=== PATIENT | female | born 1930 | race Caucasian/White ===

== ENCOUNTER 2017-10-14 22:02 | Inpatient (IN) | payer MEDICARE, BC ==
[~2017-10-14] VITALS: Ht 152.4 cm; Wt 72.6 kg
[2017-10-14 22:33] LABS: BASOPHILS 0.2 % (0-2); EOSINOPHILS 0.5 % (0-7); HEMATOCRIT 39.4 % (36.0-48.0); HEMOGLOBIN 12.5 g/dL (12-16); IMMATURE GRANULOCYTES 0.4 % (0-5); LYMPHOCYTES 10.5 % (15-50); MCHC 31.7 g/dL (31.0-37.0); MCV 97.8 fL (80.0-100.0); MEAN PLATELET VOLUME 10.9 fL (7.4-10.4); MONOCYTES 13.6 % (2-11); NEUTROPHILS 74.8 % (40-80); PLATELET COUNT 176 10x3/uL (130-400); RBC 4.03 10x6/uL (4.00-5.40); WBC 5.5 10x3/uL (4.8-10.8)
[2017-10-14 22:45] LABS: HEMOGLOBIN A1C 6.3 % (4.8-6.0)
[2017-10-14 22:46] LABS: BILIRUBIN - TOTAL 0.1 mg/dL (0.2-1.3); CALCIUM 8.7 mg/dL (8.5-10.1); CARBON DIOXIDE 32.2 mmol/L (21.0-32.0); CREATININE - SERUM 1.3 mg/dL (0.6-1.3); POTASSIUM - SERUM 3.2 mmol/L (3.5-5.1); PROTEIN - SERUM 6.2 g/dL (6.4-8.2)
[2017-10-14 22:48] LABS: APPEARANCE HAZY (CLEAR); BILIRUBIN NEGATIVE (NEGATIVE); COLOR YELLOW (YELLOW); GLUCOSE NEGATIVE (NEGATIVE); KETONE NEGATIVE (NEGATIVE); NITRITE POSITIVE (NEGATIVE); PROTEIN TRACE mg/dL (NEGATIVE); UROBILINOGEN NORMAL (NORMAL)
[2017-10-14 22:49] LABS: WHITE CELLS - URINE OCC /hpf (0-5)
[2017-10-14 22:50] LABS: BACTERIA MANY /hpf (NONE SEEN); EPITHELIAL CELLS 0-5 /hpf (0-5)
[2017-10-15] MEDS ORDERED: ROBAXIN500 MG PO (02:12)
[2017-10-15] MEDS ORDERED: GLIMEPIRIDE4 MG PO (02:13)
[2017-10-15] MEDS ORDERED: CELEXA10 MG PO (02:13)
[2017-10-15] MEDS ORDERED: OXYBUTYNIN CHLOR5 MG PO (02:15)
[2017-10-15] MEDS ORDERED: HYZAAR 50-12.51 TAB PO (02:16)
[2017-10-15] MEDS ORDERED: TENORMIN25 MG PO (02:16)
[2017-10-15] MEDS ORDERED: ACETAMINOPHEN325 MG PO (02:17)
[2017-10-15 02:19] VITALS: BP 130/62; BMI 31.3
--- NOTE | 2017-10-15 07:10 | NUR ---
REPORT RCEIVED FROM POLITICAL WORKER NURSE. CALL LIGHT IN REACH.
[2017-10-15 08:29] VITALS: BP 117/49
--- NOTE | 2017-10-15 09:30 | NUR ---
ASSESSMENT COMPLETED. SCDs APPLIED TO BLE. BED ALARM TURNED ON. CALL LIGHT IN REACH. WILL CONTINUE WITH PLAN OF CARE.
--- NOTE | 2017-10-15 10:56 | NUR ---
PT IN NO SIGNS OF ACUTE DISTRESS, BREATHING TREATMENT AT THIS TIME. NO NEEDS VOICED. BED IN LOWEST POSITION, SIDE RAILS UP X 2, CALL LIGHT WITHIN REACH.
--- NOTE | 2017-10-15 11:15 | NUR ---
ASSISTED TO BR AND BACK TO BED PER PARKS AND RECREATION WORKER.
[2017-10-15 12:32] VITALS: BP 108/53
--- NOTE | 2017-10-15 13:41 | NUR ---
FSBS 48. 1/2AMP OF D50 IVP. MORPHINE 2 MG SIVP. STATES IT IS HARD TO BREATHE AND NEEDS BREATHING TX. WILL CALL RESPIRATORY THERAPY.
[2017-10-15 15:37] VITALS: BP 111/45
--- NOTE | 2017-10-15 15:44 | NUR ---
PT AOX4 RESP EVEN AND NONLABORED PT DENIES NEEDS AT THIS TIME PT HERE FOR PNEUMONIA FOR THIS VISIT
[2017-10-15 16:28] LABS: BASOPHILS 0.2 % (0-2); EOSINOPHILS 1.3 % (0-7); HEMATOCRIT 37.6 % (36.0-48.0); HEMOGLOBIN 11.8 g/dL (12-16); IMMATURE GRANULOCYTES 0.2 % (0-5); LYMPHOCYTES 13.3 % (15-50); MCH 30.6 pg (26.0-34.0); MCHC 31.4 g/dL (31.0-37.0); MCV 97.7 fL (80.0-100.0); MEAN PLATELET VOLUME 10.7 fL (7.4-10.4); MONOCYTES 13.1 % (2-11); NEUTROPHILS 71.9 % (40-80); PLATELET COUNT 171 10x3/uL (130-400); RBC 3.85 10x6/uL (4.00-5.40); RDW 13.1 % (11.5-14.5); WBC 4.7 10x3/uL (4.8-10.8)
[2017-10-15 16:45] LABS: ANION GAP 10.7 mmol/L (8-16); CALCIUM 8.3 mg/dL (8.5-10.1); CARBON DIOXIDE 30.9 mmol/L (21.0-32.0); CREATININE - SERUM 1.2 mg/dL (0.6-1.3); POTASSIUM - SERUM 3.6 mmol/L (3.5-5.1)
--- NOTE | 2017-10-15 17:45 | NUR ---
DR. RUSHING IN ROOM TO SEE PATIENT. SOLUMEDROL AND MORPHINE SIVP. FSBS 69. SAT PATIENT ON SIDE OF BED TO EAT. CALL LIGHT IN REACH.
--- NOTE | 2017-10-15 18:16 | NUR ---
LASIX 20 MG SIVP. NO CHANGES IN INITIAL ASSESSMENT. SCDs TO BLE. BED ALARM ON. CALL LIGHT IN REACH. WILL CONTINUE WITH PLAN OF CARE.
[2017-10-15 20:00] VITALS: BP 109/54
--- NOTE | 2017-10-15 20:00 | NUR ---
PT RESTING QUIETLY AT THIS TIME. DENIES ANY NEEDS. STATES SHE IS AGGRAVATED AT [facility] IS TO WHY HER HEART RATE KEEPS GOING UP. CALL LIGHT IN REACH, SRX2, BED IN LOWEST POSITION. WILL CONTINUE WITH PLAN OF CARE.
--- NOTE | 2017-10-15 21:42 | NUR ---
BS 171, ADMIONISTERED 2 UNITS HUMULIN R PER SS.
[2017-10-16] VITALS (7 sets, daily range): BP systolic 82–109; BP diastolic 32–52; Ht 152.4 cm; Wt 72.6 kg
--- NOTE | 2017-10-16 00:39 | NUR ---
PT RUNNING CONTINUALLY 160-190'S ON TELE FOR A PERIOD OF [address] TOLENTINO IN ER. ORDERED AN EKG BEFORE ANY OTHER TREATMENT WILL BE ORDERED.
--- NOTE | 2017-10-16 00:53 | NUR ---
IV RESITED TO RIGHT WRIST 20G FROM SUSANA MONTANO. IV LEVOQUIN RESTARTED AT THIS TIME. EKG COMPLETED PER RT. AWAITING FURTHER ORDERS FOR TACHYCARDIA.
--- NOTE | 2017-10-16 01:28 | NUR ---
PT TO BE TRANSFERED TO 2117, REPORT GIVEN TO ANDREA CLIFTON.
--- NOTE | 2017-10-16 02:15 | NUR ---
PT TRANSFERRED FROM MED SURG R/T GOING INTO UNCONTROLLED A-FIB WITH A HR FROM 160'S TO 200 AT TIMES. PT IS AWAKE, AND ALERT AT THIS TIME, ORIENTED X 4. PT DEMONSTRATES MILD TACHYPNEA AND NAUSEA, DENIES CHEST PAIN. DILTIAZEM GTT ORDERED PRIOR TO TRANSFER, HOWEVER, JUST BEFORE I WAS TO HANG THE DILTIAZEM, PT CONVERTED BACK INTO SINUS RHYTHM WITH A HR OF 166. I HAVE HELD THE DILTIAZEM GTT AT THIS TIME, SUPERVISOR BROODER [employer]ARM, KATIE SALAS NOTIFIED. THE DILTIAZEM IS SPIKED AND HANGING ON THE IV POLE SHOULD PT GO BACK INTO UNCONTROLLED A-FIB. PT HAS DRY MOUTH, NAUSEA TX WITH PRN ZOFRAN, OTHERWISE NO NEEDS. PTS LEFT ARM WHICH IS SWOLLEN WITH REDNESS TO THE AC AREA HAS BEEN PLACED ON A PILLOW FOR COMFORT AND ELEVATION. WILL CONTINUE TO MONITOR PT CLOSELY. BED LOW, CALL LIGHT IN REACH, SIDE RAILS X 2, HOB 30 DEGREES, SCD'S ON AND BED ALARM ON. I HAVE ASKED PT TO REMAIN ON COMPLETE BEDREST AT THIS TIME.
[2017-10-16 05:30] LABS: BASOPHILS 0 % (0-2); EOSINOPHILS 0.3 % (0-7); HEMATOCRIT 36.7 % (36.0-48.0); HEMOGLOBIN 11.6 g/dL (12-16); IMMATURE GRANULOCYTES 0.6 % (0-5); LYMPHOCYTES 8.7 % (15-50); MCH 30.9 pg (26.0-34.0); MCHC 31.6 g/dL (31.0-37.0); MCV 97.6 fL (80.0-100.0); MEAN PLATELET VOLUME 10.7 fL (7.4-10.4); MONOCYTES 3.9 % (2-11); NEUTROPHILS 86.5 % (40-80); PLATELET COUNT 180 10x3/uL (130-400); RBC 3.76 10x6/uL (4.00-5.40)
[2017-10-16 05:31] LABS: WBC 3.3 10x3/uL (4.8-10.8)
[2017-10-16 05:50] LABS: ANION GAP 13.2 mmol/L (8-16); CALCIUM 8.6 mg/dL (8.5-10.1); CARBON DIOXIDE 28.9 mmol/L (21.0-32.0); CREATININE - SERUM 1.2 mg/dL (0.6-1.3); POTASSIUM - SERUM 4.1 mmol/L (3.5-5.1)
--- NOTE | 2017-10-16 06:34 | NUR ---
PT PULLED HER TELEMETRY OFF AND STATED SHE SAW SOMEONE IN HER BATHROOM. PT IS DEMONSTRATING INCREASED CONFUSION AT THIS TIME. THERE WAS NO ONE IN HER BATHROOM AT THIS TIME. PT HAS BEEN REORIENTED, TELEMETRY REPLACED. CONTINUE TO MONITOR CLOSELY.
--- NOTE | 2017-10-16 07:51 | NUR ---
AM ROUNDS COMPLETED. INTRODUCED MYSELF TO PT PRIMARY RN FOR TODAYS SHIFT. SHIFT ASSESSMENT COMPLETED. PT RESTING QUIETLY IN BED AND DENIES ANY CURRENT NEEDS. CL IN REACH, BED IN LOWEST, SIDE RAILS X2 AND WILL CPOC.
--- NOTE | 2017-10-16 09:00 | NUR ---
AT BEDSIDE ACCESSING PT. PT WILL BE GIVEN NEW ORAL MEDICATIONS AND NO DRIP NEEDED SHE HAS ALREADY CONVERTED WITHOUT IT. PT CURRENTLY RUNNING ST @106. WILL CPOC.
--- NOTE | 2017-10-16 12:00 | NUR ---
FSBS 297. PROVIDED PT WITH 6 UNITS OF INSULIN PER SS. PT SITTING UP IN BED RESTING QUIETLY WITH DAUGHTER AT BEDSIDE. DENIES ANY CURRENT PAIN OR NEEDS. CL IN REACH. WILL CPOC.
--- NOTE | 2017-10-16 14:58 | NUR ---
INTERACTIVE VIDEO TECHNICIAN HERE TO GET PT FOR A 2VIEW OF CHEST. PT STATES SHE HASNT AMBULATED IN A COUPLE DAYS, READ THERAPY NOTES AND PT SHOULD BE ABLE TO BEAR WEIGHT FOR XRAY. WILL TRY AND GET IT AND IF NOT CALL PHYSICIAN TO CHANGE XRAY.
--- NOTE | 2017-10-16 16:30 | NUR ---
PT LEAVING FOR HER CHEST XRAY.
--- NOTE | 2017-10-16 19:00 | NUR ---
RECEIVED REPORT AND ASSUMED PT CARE FROM DAY SHIFT NURSE @ THIS TIME.
--- NOTE | 2017-10-16 21:56 | NUR ---
PT RESTING SOUNDLY WITHOUT C/O OR DISTRESS NOTED. VCALL LIGHT WITHIN REACH. WILL CONT TO MONITOR.
[2017-10-17] VITALS (8 sets, daily range): BP systolic 86–107; BP diastolic 29–48
--- NOTE | 2017-10-17 | NUR ---
PT RESTING WELL, NO CHANGES NOTED. ASSESSMENTS UNCHANGED. CALL LIGHT WITHIN REACH. WILL MONITOR.
[2017-10-17 05:24] LABS: BASOPHILS 0 % (0-2); EOSINOPHILS 0 % (0-7); IMMATURE GRANULOCYTES 0.2 % (0-5); LYMPHOCYTES 12.2 % (15-50); MCH 31.3 pg (26.0-34.0); MCHC 32.4 g/dL (31.0-37.0); MCV 96.4 fL (80.0-100.0); MEAN PLATELET VOLUME 10.2 fL (7.4-10.4); MONOCYTES 6.3 % (2-11); NEUTROPHILS 81.3 % (40-80); PLATELET COUNT 200 10x3/uL (130-400); RBC 3.84 10x6/uL (4.00-5.40); RDW 12.9 % (11.5-14.5)
[2017-10-17 05:31] LABS: WBC 5.3 10x3/uL (4.8-10.8)
[2017-10-17 05:36] LABS: ANION GAP 9.1 mmol/L (8-16); CALCIUM 8.5 mg/dL (8.5-10.1); CREATININE - SERUM 1.4 mg/dL (0.6-1.3); POTASSIUM - SERUM 4.1 mmol/L (3.5-5.1)
--- NOTE | 2017-10-17 07:32 | NUR ---
AM ROUNDS COMPLETED. INTRODUCED MYSELF TO PT PRIMARY RN FOR TODAYS SHIFT. PT REMEMBERS ME FROM YESTERDAY. PT STATES THEY SLEPT ALRIGHT AND DENIES ANY CURRENT PAIN OR NEEDS. WILL CHECK CHART AND CPOC.
--- NOTE | 2017-10-17 09:00 | NUR ---
PT COMPLETELY SATURATED WITH URINE. BED BATH AND COMPLETE LINEN CHANGE PROVIDED. PT STATES SHE KEEPS PEEING IN HER BED BECAUSE SHE FORGETS. R.WRIST PIV IS INFILTRATED AND ARM IS SWOLLEN AND RED/TENDER. D/C'D WITH CATHETER TIP FULLY INTACT, WILL RESITE A LITTLE LATER AFTER SHE EATS BREAKFAST. PT MORE CONFUSED THIS MORNING HOWEVER SHE REORIENTS WELL JUST NEEDS FREQUENT CUING. PT SITTING UP IN BED ABOUT TO EAT BREAKFAST AND DENIES ANY FURTHER NEEDS AT THIS TIME. CL IN REACH, BED IN LOWEST, SIDE RAILS X2. WILL CPOC.
--- NOTE | 2017-10-17 12:15 | NUR ---
FSBS 273 PT REC'D 6 UNITS PER SS INSULIN. PT INCONTINENT OF URINE AGAIN AND REQUIRED A FULL LINEN CHANGE. ENCOURAGED PT TO CALL IF SHE WAS WET OR NEEDING TO VOID AND SHE STATES SHE WILL BUT OFTEN FORGETS. ASSISTED PT UP IN BED TO EAT LUNCH. PT VOICED THANKS. NO FURTHER NEEDS AT THIS TIME. WILL CPOC.
--- NOTE | 2017-10-17 13:27 | NUR ---
20 GUAGE PIV INSERTED TO R.AC X1 STICK.
--- NOTE | 2017-10-17 14:35 | NUR ---
WEANED OXYGEN DOWN TO 1L PTS PULSE OX 99% WILL CTM FOR NEED OF OXYGEN, PT STATES SHE NORMALLY DOESNT NEED OXYGEN.
--- NOTE | 2017-10-17 15:35 | NUR ---
WATER FABRICATOR OPERATOR NOTIFIED ME OF LOW BP READING IN THE 80S. MANUALLY RECHECKED AND BP LOW AT 87/48. PT SITTING UP IN BED AND IS ASYMPTOMATIC DENIES ANY DIZZINESS OR INDIFFERENT FEELINGS. WILL NOTIFY PRIMARY AND CTM.
--- NOTE | 2017-10-17 16:09 | NUR ---
SPEECH PATHO AT BEDSIDE ACCESSING SWALLOWING. NO CURRENT NEEDS. WILL CPOC.
--- NOTE | 2017-10-17 17:39 | NUR ---
RECHECK OF LOW BP NOW 97/37 PAGED PRIMARY HOWEVER PT SITTING UP IN BED AND ASYMPTOMATIC. WEANED OXYGEN DOWN TO RA AND PT REMAINS 93% WILL CTM. ACCURATE OUTPUT NOT AVAILABLE R/T PT BEING INCONTINENT SEVERAL TIMES THROUGHOUT THE DAY.
--- NOTE | 2017-10-17 21:39 | NUR ---
PT'S GLUCOSE > 400. 12 UNITS REGULAR GIVEN. WILL RECHECK GLUCOSE AT MIDNIGHT. WILL CONT TO MONITOR.
--- NOTE | 2017-10-17 23:08 | NUR ---
RIGHT AC IV NOT PATENT AND SWELLING NOTED WHEN FLUSHING SITE. PT C/O PAIN TO SITE. IV REMOVED, CATH INTACT ON REMOVAL. 22 GAUGE ANGIOCATH PLACED TO RIGHT HAND X1 STICK AND PT TOLERATED WELL. DRSG PER POLICY. WILL CONT TO MONITOR.
[2017-10-18] VITALS: BP 85/31
[2017-10-18 04:00] VITALS: BP 97/43
[2017-10-18 05:49] LABS: BASOPHILS 0.1 % (0-2); EOSINOPHILS 0 % (0-7); HEMATOCRIT 37.6 % (36.0-48.0); HEMOGLOBIN 12.3 g/dL (12-16); IMMATURE GRANULOCYTES 0.4 % (0-5); LYMPHOCYTES 9.3 % (15-50); MCH 30.8 pg (26.0-34.0); MCHC 32.7 g/dL (31.0-37.0); MEAN PLATELET VOLUME 10.8 fL (7.4-10.4); NEUTROPHILS 82.2 % (40-80); RDW 12.5 % (11.5-14.5)
[2017-10-18 05:52] LABS: WBC 11.4 10x3/uL (4.8-10.8)
[2017-10-18 05:53] LABS: PLATELET COUNT 259 10x3/uL (130-400)
[2017-10-18 06:20] LABS: ANION GAP 9.6 mmol/L (8-16); CALCIUM 8.9 mg/dL (8.5-10.1); CARBON DIOXIDE 34.7 mmol/L (21.0-32.0); CREATININE - SERUM 1.5 mg/dL (0.6-1.3)
[2017-10-18 06:23] LABS: POTASSIUM - SERUM 3.3 mmol/L (3.5-5.1)
--- NOTE | 2017-10-18 07:30 | NUR ---
RECEIVED PT IN BED EYES CLOSED RESP UNLABORED SKIN W/D NAD NOTED
[2017-10-18 08:27] VITALS: BP 102/48
--- NOTE | 2017-10-18 09:03 | EC ---
PATIENT:BLAKE FIELD I DATE OF SERVICE: 10/15/17 SEX: F MEDICAL RECORD: [id number] DATE OF : 30 LOCATION:D.M2 D.211 AGE OF PATIENT: 87 ADMISSION DATE: 10/15/17 REFERRING PHYSICIAN: INTERPRETING PHYSICIAN: KEARA TAPIA MD ECHOCARDIOGRAM REPORT ECHO CHARGES 4 ECHO COMPLETE CLINICAL DIAGNOSIS: A-FIB/ELEVATED BNP/CHF ? ECHOCARDIOGRAPHIC MEASUREMENTS (adult normal given) AC root (d.<3.7cm) 2.8 cm LV Septum d (<1.2 cm> 1.3 cm Valve Excursion 1.6 cm LV Septum (systole) 1.6 cm Left Atria (s.<4.0cm> 3.9 cm LVPW d(<1.2cm) 1.0 cm RV (d.<2.3cm) 2.1 cm LVPW (sytole) 1.7 cm LV diastole(<5.6CM) 4.5 cm MV E-F(>70mm/sec) cm LV systole 2.5 cm LVOT Diameter 1.4 cm MV exc.(>10mm) cm Est.ejection fraction (50-75%) % Pericardial Effusion N DOPPLER: LVIT cm/sec A 86.0 cm/sec E 1115 cm/sec LA cm/sec RVSP 53.4 mmHg LVOT 138 cm/sec AOP1/2T m/s Asc. Ao 182 cm/sec RVOT 64.0 cm/sec RA cm/sec PA 99.0 cm/sec AV Gradient Peak 13.3 mmHg AV Mean 7.0 mmHg AV Area 1.1 cm MV Gradient Peak 7.5 mmHg MV Mean 2.9 mmHg MV Area cm COMMENTS: Blood Or Blood Bank Technician: Lolis VIEIRAOE Wheat Shipper: 1 Dr. Tapia TAPE# PACS DATE OF SERVICE: 10/16/2017 FINDINGS: 1. Left ventricular chamber size is within normal limits. Left ventricular systolic function is normal. Overall ejection fraction is estimated at 60%. 2. Left atrium, right atrium, and right ventricle chamber sizes are within normal limit. Left atrium measures 3.9 cm. 3. Valvular structures have normal structure and motion. 4. Doppler interrogation reveals moderate mitral regurgitation and moderate tricuspid regurgitation. No other valvular insufficiency or stenosis. ECHOCARDIOGRAM REPORT [id number] BLAKE FIELD I Pulmonary systolic pressure is elevated, estimated at 53 mmHg. 5. No evidence of pericardial effusion or left ventricular thrombus. TRANSINT:[id number] Voice Confirmation ID: [id number] DOCUMENT ID: [id number] KEARA TAPIA MD at 0903 CC: [id number] DICTATION DATE: 10/17/171125 LOOM FIXER APPRENTICE: 10/17/17 1208 ADM IN [facility] [address] [place] [address]
--- NOTE | 2017-10-18 09:03 | CN ---
PATIENT NAME:BLAKE FIELD I MEDICAL RECORD: [id number] : 30 LOCATION:D. D.2118 ADMIT DATE: 10/15/17 ACCOUNT: [id number] CONSULTING PHYSICIAN: KEARA CLANCY MD REFERRING PHYSICIAN: CASSY BOWLES MD DATE OF CONSULTATION: 10/16/2017 CARIOLOGY CONSULT DIAGNOSES: 1. Paroxysmal atrial fibrillation. 2. Pneumonia. HISTORY OF PRESENT ILLNESS: This is a lady who presents with pneumonia, was originally in sinus rhythm, went into atrial fibrillation with rapid ventricular response, is now back in sinus rhythm. No history of atrial fibrillation. PHYSICAL EXAMINATION: GENERAL APPEARANCE: Well-nourished, well-developed, appears stated age. Level of distress, comfortable. PSYCHIATRIC: Mental status, alert, normal affect. Orientation, oriented to time, place and person. EYES: Lids and conjunctiva, noninjected. No discharge, no pallor. ENT: Lips, teeth, gums, normal dentition. Oropharynx, no cyanosis, no pallor. NECK: Carotid arteries, bilateral normal upstroke, no bruits, no thrills. JUGULAR VEINS: No jugular venous pressure or distention. CERVICAL LYMPH NODES: Nontender, nonenlarged. THYROID: Not enlarged. Nontender. No nodules. LUNGS: Respiratory effort, unlabored. CHEST: Normal curvature. No thoracic deformity. No chest wall tenderness. Percussion, resonant. Auscultation, clear. No wheezes, no rales, no rhonchi. CARDIOVASCULAR: Precordial exam, nondisplaced. No heaves or pericardial thrills. Rate and rhythm, regular. Heart sounds, normal S1, normal S2. No S3, no gallop, no rub. Systolic murmur, not heard. Diastolic murmur, not heard. EXTREMITIES: No cyanosis, no edema. Peripheral pulses, full and equal in all extremities, except as noted. No bruits appreciated. ABDOMEN: Soft, nondistended. Normal aorta. No bruit. Nontender. No masses. Liver, nontender, no hepatomegaly. Spleen, nontender, no splenomegaly. MUSCULOSKELETAL: No joint tenderness. No joint swelling. No erythema. NEUROLOGICAL: Normal gait, normal strength, normal tone. SKIN: Warm and dry. OVERALL IMPRESSION: Atrial fibrillation with pneumonia. We will start sotalol 80 mg b.i.d. Hopefully, this will maintain sinus rhythm. Get an echocardiogram, other than that no other cardiac workup is necessary. TRANSINT:[id number] Voice Confirmation ID: [id number] DOCUMENT ID: [id number] CONSULT REPORT [id number] BLAKE FIELD JEFFREY MD at 0903 CC: [id number] DICTATION DATE: 10/16/17739 THREAD LASTER: 10/16/1741 ADM IN [facility] [address] [place] [address]
[2017-10-18 11:57] VITALS: BP 103/41
--- NOTE | 2017-10-18 12:01 | NUR ---
FSBS 193 REGULAR INSULIN 2 UNITS GIVEN SQ LT ARM
--- NOTE | 2017-10-18 12:21 | NUR ---
Rehab Prescreening Consult recieved and the patient has been visited. She meets criteria and is agreeable to participate in the required therapy. She will be accepted today if physician agrees. Discussed with the CM Yair Ayers. Poornima Cisneros RN Clinical Liaison, Rehab
[2017-10-18] MEDS ORDERED: IPRAT-ALBUT 0.5-3 ML INH (12:23)
[2017-10-18] MEDS ORDERED: IPRAT-ALBUT 0.5-3 ML UPD (12:23)
[2017-10-18] MEDS ORDERED: BETAPACE 80 MG80 MG PO (12:23)
[2017-10-18] MEDS ORDERED: HUMULIN R100 U/ML SC (12:24)
[2017-10-18] MEDS ORDERED: PROTONIX40 MG PO (12:24)
[2017-10-18] MEDS ORDERED: LEVAQUIN750 MG PO (12:25)
[2017-10-18] MEDS ORDERED: PREDNISONE10 MG PO (12:26)
--- NOTE | 2017-10-18 16:22 | NUR ---
Patient Name: BLAKE FIELD Admission Status: ER Accout number: [id number] Admission Date: 10-15-2017 : 1930 Admission Diagnosis:PNEUMONIA, UNSPECIFIED ORGANISM Attending: CASSY RILEY Current LOS: 3 Anticipated DC Date: 10-18-2017 Planned Disposition: Inpatient Rehab Primary Insurance: MEDICARE A & B PLANNED EXTERNAL PROVIDER: [facility] Discharge Planning Comments: * Is the patient Alert and Oriented? Yes 0 * How many steps to enter\exit or inside your home? RAMP 0 * PCP PT CANNOT REMEMBER 0 * Pharmacy PT CANNOT REMEMBER 0 * Preadmission Environment Home with Family 0 * ADLs Partial Dependent 0 * Partial ADLs (Assistance needed) Bathing Medication Management 0 * Equipment Rolling Walker Shower Chair 0 * Other Equipment NO MEDICAL EQUIPMENT PROVIDER PREFERENCE 0 * List name and contact numbers for known caregivers / representatives who currently or will assist patient after discharge: SARINA MCKEON DTR, 0 * Community resources currently utilized None 0 * Please name any agencies selected above. NONE 0 * Additional services required to return to the preadmission environment? No 0 * Can the patient safely return to the preadmission environment? Yes 0 * Has this patient been hospitalized within the prior 30 days at any hospital? No 0 CM RECEIVED INPATIENT REHAB PRESCREEN ORDER, MET WITH PT IN ROOM TO DISCUSS DISCHARGE PLANNING AND NEEDS. PT REPORTS LIVING AT HOME DEPENDENTLY WITH HER ADULT DAUGHTER WHO ASSISTS WITH MAKING SURE PT DOES NOT FALL IN THE SHOWER AND WASHING PT'S BACK WELL MEDICATIONS. PT HAS ROLLING WALKER AND SHOWER CHAIR WITH NO MEDICAL EQUIPMENT PROVIDER PREFERENCE. PT HAS NO OUTSIDE SERVICES ASSISTING IN THE HOME. CM DISCUSSED AVAILABILITY OF HOME HEALTH, REHAB SERVICES AND MEDICAL EQUIPMENT. PT REPORTS WANTING TO GO TO [facility], SHE WAS TOLD THEY WILL TAKE HER TODAY, POSSIBLY TONIGHT; PT REPORTS HER DAUGHTER WILL PICK HER UP FOR DISCHARGE HOME. IMPORTANT MESSAGE FROM MEDICARE PROVIDED AND EXPLAINED. CM SPOKE TO [facility] OF INPATIENT REHAB, THEY PLAN TO ACCEPT PT TODAY FOR REHAB. [facility] TO CONTACT MED 2 NURSE WITH ROOM NUMBER WHEN READY TO ACCEPT PT AND NURSE REPORT. Order Entry Representative: Ramesh Ayers
--- NOTE | 2017-10-18 19:20 | NUR ---
PT GIVEN DISCHARGE INSTRUCTIONS AND AND TRANSFER TO REHAB VIA BED. ALL BELONGINGS GO WITH PT. REPORT GIVEN TO REHAB NURSE BY ANDREA TAN. TELE REMOVED.
--- NOTE | 2017-10-20 11:38 | CN ---
PATIENT NAME:BLAKE JEFFERSON I MEDICAL RECORD: [id number] : 30 LOCATION:D. D.2118 ADMIT DATE: 10/15/17 ACCOUNT: [id number] CONSULTING PHYSICIAN: ROGER RUSHING MD REFERRING PHYSICIAN: HUY LIU MD DATE OF CONSULTATION: 10/15/2017 CONSULT REQUESTING PHYSICIAN: Huy Liu MD REASON FOR CONSULTATION: Shortness of breath and wheezing. HISTORY OF PRESENT ILLNESS: Ms. Jefferson is a very poor historian. The patient was brought into the ER. She was confused. Her workup showed she has elevated proBNP, and with working diagnosis of pneumonia, the patient was admitted with. Denies any fever and chill. There are no night sweats. REVIEW OF THE SYSTEMS: Mainly in the history of present illness. PAST MEDICAL HISTORY: 1. Diabetes mellitus. 2. Hypertension. 3. History of pneumonia. 4. History of constipation. 5. Depression. PAST SURGICAL HISTORY: 1. She had bilateral knee surgery. 2. Appendectomy. ALLERGIES: No known drug allergies. MEDICATIONS: OpenVPN was reviewed. She is on Levaquin, methylprednisolone IV, and albuterol/ipratropium nebulizer. PERSONAL AND SOCIAL HISTORY: The patient is never smoker. Nondrinker. FAMILY HISTORY: Significant for cardiovascular disease and cancer. PHYSICAL EXAMINATION: GENERAL: Now, the patient is lying comfortably. She is not in acute distress. VITAL SIGNS: The blood pressure is 108/53, pulse is 82, respirations 17, temperature is 98.2, and SpO2 98% on 2 liters nasal cannula. HEENT: Conjunctivae are pink. Sclerae nonicteric. NECK: Neck is supple. No JVD. CHEST: Excursion is minimal on both sides. There is wheeze on forceful expiration. There are also bibasilar crackles. HEART: Rhythm regular. Normal sound. No murmur. ABDOMEN: Abdomen is soft. Bowel sounds present. No hepatosplenomegaly. RECTAL: Deferred. EXTREMITIES: No cyanosis. No clubbing. No pedal edema. SKIN: Warm. Normal turgor. CENTRAL NERVOUS SYSTEM: The patient is awake and alert. There is no obvious cranial nerve abnormality. The gait was not tested. The patient is a bit confused. CONSULT REPORT [id number] BLAKE JEFFERSON I CHEST RADIOGRAPH: There is increased interstitial marking. There is mild right bibasilar atelectasis. OTHER LABORATORY DATA: CBC; WBC 4.7, hemoglobin 11.8, hematocrit 37.6, and platelet count 171. Chemistry; sodium 143, potassium 3.6, BUN is 23, creatinine 1.2, and glucose 90. IMPRESSION: 1. Acute hypoxic respiratory failure secondary to #2. 2. Pulmonary edema. 3. Wheezing, most likely secondary to pulmonary edema, possible pneumonitis with bronchospasm. 4. Hypertension. 5. Diabetes mellitus type 2. RECOMMENDATION: 1. Continue albuterol/ipratropium nebulizer. Continue methylprednisolone IV. Continue the IV antibiotic. I will start her on Lasix. 2. Followup chest radiograph and labs as well as cardiac echo. Dr. Liu, thanks for involving me in the care of Ms. Jefferson. TRANSINT:[id number] Voice Confirmation ID: [id number] DOCUMENT ID: [id number] ROGER RUSHING MD at 1138 CC: HUY LIU MD [id number] DICTATION DATE: 10/15/171742 COREMAKER FLOOR: 10/15/172038 DIS IN 10/18/17 [facility] [address] [facility] [address]
== END 2017-10-18 19:20 | DRG 193 ==
LOC: D.ER 22:02 → D.M2 10-15 01:10 → D.MS 10-15 01:10 → D.M2 10-16 01:38
PROVIDERS: Emergency Medicine; Physician Assistant Medical; ADMIT Family Medicine Adult Medicine
DX: J18.9 Pneumonia, unspecified organism (principal); J96.01 Acute respiratory failure with hypoxia; J98.11 Atelectasis; E11.9 Type 2 diabetes mellitus without complications; Z79.84 Long term (current) use of oral hypoglycemic drugs; I10 Essential (primary) hypertension; I48.0 Paroxysmal atrial fibrillation; I08.1 Rheumatic disorders of both mitral and tricuspid valves

== ENCOUNTER 2017-10-18 17:08 | Inpatient (IN) | payer MEDICARE, BC ==
[~2017-10-18] VITALS: Ht 152.4 cm; Wt 68.9 kg
[~2017-10-18 17:08] MED LIST: ACETAMINOPHEN325 MG PO; BETAPACE 80 MG80 MG PO; CELEXA10 MG PO; GLIMEPIRIDE4 MG PO; HUMULIN R100 U/ML SC; HYZAAR 50-12.51 TAB PO; IPRAT-ALBUT 0.5-3 ML INH; IPRAT-ALBUT 0.5-3 ML UPD; LEVAQUIN750 MG PO; OXYBUTYNIN CHLOR5 MG PO; PREDNISONE10 MG PO; PROTONIX40 MG PO; ROBAXIN500 MG PO; TENORMIN25 MG PO
--- NOTE | 2017-10-18 18:37 | NUR ---
RESTING QUIETLY IN BED. CALL LIGHT IN REACH. BED IN LOWEST POSITION
--- NOTE | 2017-10-18 19:40 | NUR ---
RECIEVED AT 1928. BROUGHT IN ON A BED WITH 2 STAFF MEMBERS. PLEASANT AND COOPERATIVE. ALERT AND ORIENTED TO PERSON AND PLACE. IV TO LEFT HAND PATENT WITH DRESSING INTACT. SEVERAL SMALL BRUISES TO UPPER EXTREMITIES. O2 @ 2 LITERS PER N/C. DENIES ANY NEEDS OR PAIN AT THIS TIME. BSX4Q. DENIES ANY TENDERNESS IN ABDOMEN. HOB ELEVATED. CALL LIGH AND FRESH WATER IN REACH.
[2017-10-18 23:22] VITALS: BP 124/54; BMI 29.7
[2017-10-19 06:33] LABS: BASOPHILS 0 % (0-2); EOSINOPHILS 0 % (0-7); HEMATOCRIT 38.4 % (36.0-48.0); HEMOGLOBIN 12.6 g/dL (12-16); IMMATURE GRANULOCYTES 0.4 % (0-5); LYMPHOCYTES 11.5 % (15-50); MCHC 32.8 g/dL (31.0-37.0); MCV 94.6 fL (80.0-100.0); MONOCYTES 8.6 % (2-11); NEUTROPHILS 79.5 % (40-80); RBC 4.06 10x6/uL (4.00-5.40); RDW 12.5 % (11.5-14.5)
[2017-10-19 06:41] LABS: WBC 7.9 10x3/uL (4.8-10.8)
[2017-10-19 06:42] LABS: PLATELET COUNT 158 10x3/uL (130-400)
[2017-10-19 06:54] LABS: ANION GAP 8.7 mmol/L (8-16); CARBON DIOXIDE 35.3 mmol/L (21.0-32.0); CREATININE - SERUM 1.2 mg/dL (0.6-1.3)
--- NOTE | 2017-10-19 07:57 | NUR ---
SITTING UP IN BED EATING BREAKFAST. ALERT AND ORIENTED X2. CALL LIGHT AND PERSONAL ITEMS WITHIN REACH, BED LOW AND ALARM ON. WILL CONTINUE TO MONTIOR
[2017-10-19 07:58] VITALS: BP 137/50
--- NOTE | 2017-10-19 10:34 | NUR ---
AMARYL GIVEN LATE D/T MEDICATION NOT AVAILABLE IN [facility], TRANSFERRED MED TO [facility] IN MED II IN ORDER TO ADMINISTER TO PT.
--- NOTE | 2017-10-19 11:45 | NUR ---
PATIENT ADMITTED TO REHAB FROM ACUTE FLOOR. PATIENT DOES NOT REMEMBER HER PCP NAME. DME AT HOME: ROLLING WALKER AND SHOWER CHAIR. PATIENT STATES HER DAUGHTER WILL TAKE HER HOME AT DISCHARGE. NO FAMILY PRESENT AT THIS TIME.
[2017-10-19 13:51] VITALS: Ht 152.4 cm; Wt 68.9 kg
--- NOTE | 2017-10-19 13:59 | NUR ---
SITTING UP IN WC WORKING WITH THERAPY.VICTOR HUGO WELL.
--- NOTE | 2017-10-19 14:00 | RHP ---
PATIENT: BLAKE FIELD I MEDICAL RECORD: [id number] ACCOUNT: [id number] [facility] ADMISSION DATE: 10/18/17 REHABILITATION HISTORY AND PHYSICAL EXAMINATION POST ADMISSION PHYSICIAN EXAMINATION DATE OF ADMISSION: 10/18/2017. ADMITTING DIAGNOSIS: Acute hypoxic respiratory failure secondary to pulmonary edema. HISTORY OF PRESENT ILLNESS: The patient is an 87-year-old female patient admitted to the rehab with a working diagnosis of acute hypoxic respiratory failure secondary to pulmonary edema. She was admitted to the Emergency Room on 10/15/2017. She arrived via EMS with shortness of breath. Chest x-ray showed interstitial markings that were increased. There was mild right bibasilar atelectasis. Her workup showed she had an elevated proBNP and a working diagnosis of pneumonia. She was originally in sinus rhythm and then went into atrial fibrillation with rapid ventricular response. She has no history of atrial fib in the past. Cardiology and pulmonary were consulted. She was started on sotalol 80 mg b.i.d. She is now back in sinus rhythm. Pulmonary thought that these findings were consistent with acute hypoxic respiratory failure secondary to pulmonary edema. She was treated with IV steroids, IV Lasix, updrafts, and supplemental O2. She is alert and oriented, but remains confused about in depth details, she lives with her daughter. She was moderately independent using a walker. Currently, she is moderate to max assist for ADLs and mobility. She has weakness in her lower extremities, tires easily and becomes dyspneic with exertion. She would like to return back home with her daughter, status post discharge from rehab and will definitely need inpatient PT and OT to get there. COMORBIDITIES: Include diabetes, pulmonary edema, right middle lobe atelectasis versus infiltrate, acute mental status changes, confusion, wheezing, pneumonia, atrial fibrillation, hyperglycemia, hypokalemia, and depression. PAST MEDICAL HISTORY: Significant for diabetes, history of pneumonia, constipation, depression. PAST SURGICAL HISTORY: Includes knee surgery and an appendectomy in the past. ALLERGIES: No known drug allergies. CURRENT MEDICATIONS: Include Floranex 460 mg daily, hydrochlorothiazide 12.5 mg daily, Cozaar 50 mg daily, Protonix 40 mg daily, Robaxin 500 mg daily, Levaquin 750 mg daily for a total of 2 doses, Amaryl 4 mg daily, Celexa 10 mg daily, atenolol 25 mg daily, DuoNeb updrafts q.4 hours. She is on a glucose replacement protocol. She is on an electrolyte replacement protocol at this time for potassium and magnesium. She is on prednisone 40 mg taper. She is on sotalol 80 mg b.i.d., Ditropan 5 mg b.i.d. She is on an intermediate resistance sliding scale of Humulin insulin regular. She is on Tylenol 650 mg q.4 hours p.r.n., and polyethylene glycol 17 g in 8 ounces of water daily. HABITS: No alcohol or tobacco use. FAMILY HISTORY: Noncontributory. HISTORY AND PHYSICAL [id number] BLAKE FIELD I SOCIAL HISTORY: The patient hopes to return back home with her daughter and get back to her prior level of functioning. REVIEW OF SYSTEMS: GENERAL: Does complain of weakness and fatigue. HEENT: She denies cold, cough, or congestion. CARDIOVASCULAR: Denies chest pain. PHYSICAL EXAMINATION: VITAL SIGNS: Stable, afebrile. GENERAL: An elderly female who is in no acute distress, alert upon exam. HEENT: Normocephalic and atraumatic. Mucosa moist. NECK: Supple. No lymphadenopathy. LUNGS: Clear in upper herman, but decreased breath sounds in the bases. CARDIOVASCULAR: Seems to be in a regular rate and rhythm at this time. ABDOMEN: Benign. EXTREMITIES: No clubbing, cyanosis or edema. NEUROLOGIC: Seems intact. LABORATORY DATA: Her white count is 7.9, H&H of 12.6 and 38.4, and platelet count was noted to be 158. Her sodium is 140, potassium 4.0, BUN and creatinine of 42 and 1.2, and blood sugar is noted to be 145. ASSESSMENT: This is an 87-year-old female patient admitted to the rehab with a working diagnosis of acute respiratory failure secondary to pulmonary edema. The patient has potential to make improvement. We instituted the following multidisciplinary therapies including to, but not limited to physical, occupational, respiratory, speech, nutritional services, prosthetics and orthotics. Given her complex condition and risk for more complications, rehabilitation services cannot be provided at a low level of care such as a group home facility. PLAN: 1. Admit to [facility] rehab for intensive inpatient therapy to include the following disciplines: A. Physical therapy to improve gait, all transfer skills and bed mobility to a modified independent level. B. Occupational therapy to improve activities of daily living to a modified independent level. C. Case management to assist with discharge planning and placement options. D. Nutrition to assist with nutritional needs. E. Rehabilitation nursing to assist in monitoring the patient's underlying medical conditions and to assist with any type of bowel or bladder management. 2. The patient's current medications and medical care will be continued. 3. The patient will be placed on standard fall precautions. 4. The patient's estimated length of stay is approximately 7-10 days. 5. We will discuss this patient during care team staff meeting this week. We will hopefully get her back ambulatory with a rolling walker at home with her daughter. TRANSINT:[id number] Voice Confirmation ID: [id number] DOCUMENT ID: [id number] CARRIE notes whether there has been none or any medical/functional HISTORY AND PHYSICAL [id number] BLAKE FIELD I change since admission: - No change since prescreen. CARRIE attests patient continues to be appropriate for IRF: - Continues to be appropriate. GE HIDALGO MD at 1400 CC: [id number] DICTATION DATE: 10/19/17 0859 DIRECTOR FINANCIAL PLANNING: 10/19/17 1015 ADM IN [place] [address] [place] [address]
--- NOTE | 2017-10-19 14:07 | NUR ---
SITTING UP IN W/C WATCHING TV. DENIES ANY NEEDS OR PAIN. NO S/SX OF ACUTE DISTRESS NOTED. CALL LIGHT AND PERSONAL ITEMS WITHIN REACH, W/C BRAKES LOCKED AND BOX ALARM ON. WILL CONTINUE TO MONITOR
--- NOTE | 2017-10-19 15:40 | NUR ---
LYING IN BED EYES CLOSED RESTING QUIELTY. NO S/SX OF RESPIRATORY DISTRESS NOTED. CALL LIGHT AND PERSONAL ITEMS WITHIN REACH, BED LOW AND SR.X3. WILL CONTINUE TO MONITOR
--- NOTE | 2017-10-19 19:25 | NUR ---
PATIENT IN BED, AWAKE. CONFUSED. ATE NO DINNER AND SAID IT IS BECAUSE HSE HAS NO APPETITE. REMOVED HER DINNER TRAY.
--- NOTE | 2017-10-19 21:10 | NUR ---
ASSESSMENT AND HS MEDS COMPLETE. FSBS 125. GAVE HER HS SNACK OF 8 OZS 2% MILK AND 3 HELENA CRAX SQUARES. REMINDED HER SHE NEEDS TO EAT THE WHOLE SNACK TO KEEP HER BLOOD SUGAR FROM BOTTOMING OUT IN THE EARLY AM. WILL CHECK BACK UNTIL SHE HAS EATEN WHOLE SNACK DUE TO CONFUSION AND SLEEPINESS I EXPECT SHE WILL TRY TO FALL ASLEEP BEFIRE SHE COMPLETES THE TASK.
[2017-10-19 21:45] VITALS: BP 109/45
--- NOTE | 2017-10-19 22:10 | NUR ---
PUT PATIENT BACK ON TASK TO FINISH HER BEDTIME SNACK. ASSIGNED CALENDER WORKER HELPER TO FOLLOW UP WHILE I AM WORKING WITH OTHER PATIENTS.
--- NOTE | 2017-10-19 22:50 | NUR ---
PATIENT HAS FINALLY COMPLETED HER SNACK AND IS NOW RESTING QUIETLY IN BED, EYES CLOSED.
--- NOTE | 2017-10-19 23:50 | NUR ---
RESTING QUIETLY IN BED, AFTER RECEIVING R/T UPDRAFT ABOUT 20 MINUTES AGO.
--- NOTE | 2017-10-20 02:00 | NUR ---
IN BED, EYES CLOSED. RESTING ON LEFT SIDE.
--- NOTE | 2017-10-20 04:10 | NUR ---
HEARD PATIENT TALKING BRIEFLY. ENTERED HER ROOM AND FOUND HER AWAKE. ADMITS SHE IS WET. CALAL LIGHT IS ON THE FLOOR FOR THE 3RD TIME TONIGHT, BUT SHE SELDOM REMEMBERS TO USE IT ANYWAY. CLEANSED PATIENT AND CHANGED HER PINK PAD, PULL-UP BRIEF AND SCRUB TOP WELL HER TOPSHEET AND BLANKET DUE TO VERY LARGE URINE INCONTINENCE. APPLIED BUTT PASTE TO REDDENED, BLANCHABLE AREA OF GLUTEAL CLEFT AND GLUTEAL MARGINS. APPEARS PATIENT HAS BEEN SCRATCHING A BIT EVIDENCED BY A FEW SMALL LINEAR ABRASIONS.
--- NOTE | 2017-10-20 05:45 | NUR ---
CLEANSED PATIENT AND CHANGED HER SCRUB TOP, BRIEF, PINK BED PAD, AND GLUE AIR PADS DUE TO VERY LARGE URINE INCONTINENCE DURING SLEEP. FSBS 76. GAVE PATIENT 8 OZS ORANGE JUICE AND SUPERVISED HER DRINKING ALL OF IT SHE TENDS NOT TO STAY ON TASK.
--- NOTE | 2017-10-20 05:45 | NUR ---
FSS 76. GAVE PATIENT 8 OZS OJ AND SUPERVISED HER DRINKING IT SHE TENDS NOT TO STAY ON TASK.
[2017-10-20 07:05] LABS: BASOPHILS 0 % (0-2); EOSINOPHILS 0.1 % (0-7); HEMATOCRIT 39.8 % (36.0-48.0); IMMATURE GRANULOCYTES 0.5 % (0-5); LYMPHOCYTES 16.6 % (15-50); MCHC 32.7 g/dL (31.0-37.0); MCV 94.8 fL (80.0-100.0); MEAN PLATELET VOLUME 11.1 fL (7.4-10.4); MONOCYTES 10.6 % (2-11); NEUTROPHILS 72.2 % (40-80); PLATELET COUNT 174 10x3/uL (130-400); RDW 12.5 % (11.5-14.5); WBC 9.1 10x3/uL (4.8-10.8)
[2017-10-20 07:36] LABS: ANION GAP 8.1 mmol/L (8-16); CALCIUM 8.8 mg/dL (8.5-10.1); CARBON DIOXIDE 36.7 mmol/L (21.0-32.0); CREATININE - SERUM 1.2 mg/dL (0.6-1.3); POTASSIUM - SERUM 3.8 mmol/L (3.5-5.1)
[2017-10-20 08:24] VITALS: BP 99/49
--- NOTE | 2017-10-20 08:55 | NUR ---
PT RESTING IN BED, EYES CLOSED. BREAKFAST HAS NOT BEEN TOUCHED. WOKE PT. PT STATES SHE IS NOT HUNGRY. PT IS CONFUSED TO TIME, PLACE AND SITUATION. PT AM MEDS ADMINISTERED WITHOUT DIFFICULTY. WCTM.
--- NOTE | 2017-10-20 12:15 | NUR ---
PT EATING LUNCH, DENIES NEEDS. WCTM.
--- NOTE | 2017-10-20 15:07 | NUR ---
CARE TEAM MEETING: PATIENT PROGRESSING IN THEARPY AND WILL BE RA AT NEXT MEETING. TENATIVE DISCHARGE DATE IS 11/01/17. WILL CONTINUE TO FOLLOW WITH PATIENT . NO FAMILY AT BEDSIDE
[2017-10-20 19:23] VITALS: BP 107/44
--- NOTE | 2017-10-20 19:23 | NUR ---
RECIEVED UP IN BED WITH EYES CLOSED. PLEASANT AND COOPERATVE.DENIES ANY PAIN. IV D/C'D D/T NONUSE. CALL LIGHT AND OVERBED TABLE IN REACH.
--- NOTE | 2017-10-20 21:13 | NUR ---
RESTING IN BED WITH EYES CLOSED AT THIS TIME. HOB ELEVATED TO 30 DEGREES. O2@ 2 LITERS PER N/C. RESP. EVEN AND UNLABORED. CALL LIGHT AND OVERBED TABLE IN REACH.
--- NOTE | 2017-10-21 00:26 | NUR ---
RESTING IN BED WITH EYES CLOSED. NO S/S OF DISTRESS OBSERVED. 02@ 2 LITERS PER N/C. HOB ELEVTED TO 30 DEGREES. CALL LIGHT IN REACH.
--- NOTE | 2017-10-21 02:05 | NUR ---
RESTING IN BED WITH EYES CLOSED. NO S/S OF DISTRESS OBSERVED. CHECKED AND CHANGED EARLIER AND REQUIREING FULL LINEN AND GOWN CHANGE. HOB ELEVATED AND CALL LIGHT IN REACH.
--- NOTE | 2017-10-21 06:56 | NUR ---
RESTING IN BED WITH EYES CLOSED AT THIS TIME. NO S/S OF DISTRESS OBSERVED. O2@2 LITERS PER N/C IN PLACE. REAP EVEN AND UNLABORED. BED ALARM ON AND FUNCTIONING PROPERLY. CALL LIGHT IN REACH.
[2017-10-21 08:17] VITALS: BP 107/51
--- NOTE | 2017-10-21 08:57 | NUR ---
PT AM MEDS ADMINISTERED. PT RESTING IN BED AT THIS TIME, DENIES NEEDS. WCTM.
--- NOTE | 2017-10-21 13:01 | NUR ---
Nutrition Follow Up: Pt stated "I don't eat much" when asked about her appetite. She said that it was because of "my throat and my tongue" but could not state why. Pt agreed to try Glucerna. Pt is eating 15[facility] meal [facility]. No BM since admit. Labs reviewed - Glucose elevated. Meds noted including Prednisone. Rec continue diabetic diet with TELESERVICES REPRESENTATIVE recs for consistencies. Rec consider an appetite stimulant. Will send Glucerna BID. RD following.
--- NOTE | 2017-10-21 17:41 | NUR ---
PT SITTING UP IN BED EATING DINNER, DENIES NEEDS. WCTM.
[2017-10-21 19:16] VITALS: BP 109/47
--- NOTE | 2017-10-21 19:16 | NUR ---
RECIEVED UP IN BED WITH EYES OPEN AND TV ON. PLEASANT AND COOPERATIVE. ALERT AND ORIENTED TO PERSON ONLY. CALL. O2@ 2 LITERS PER N/C. RESP. EVEN AND UNLABORED. CALL LIGHT AND OVERBED TABLE IN REACH.
--- NOTE | 2017-10-21 21:42 | NUR ---
RESTING IN BED WITH EYES OPEN AND TV ON. PLEASANT AND TALKATIVE. INCONTINENT OF BLADDER. PARTIAL BED CHANGE REQUIRED. REPOSITIONED AT THAT TIME. CALL LIGHTH IN REACH.
--- NOTE | 2017-10-22 00:03 | NUR ---
RESTING IN BED WITH EYES CLOSED AT THIS TIME. NO S/S OF DISTRESSOBSERVED. CALL LIGHT IN REACH.
--- NOTE | 2017-10-22 04:41 | NUR ---
RESTING IN BED WITH EYES CLOSED. CHECKED AND CHANGED. REQUIRED PARTIAL LINEN CHANGE. INCONT. OF BLADDER. O2@ 2 LITERS PER N/C IN PLACE. TUBING ON FOREHEAD WHEN THIS NURSE ENTERED THE ROOM. TURNED AND REPOSITIONED. CALL LIGHT AND OVERBED TABLE IN REACH.
[2017-10-22 06:29] LABS: HEMATOCRIT 41.2 % (36.0-48.0); HEMOGLOBIN 13.8 g/dL (12-16); LYMPHOCYTES 10.7 % (15-50); MCH 30.4 pg (26.0-34.0); MCHC 33.5 g/dL (31.0-37.0); MEAN PLATELET VOLUME 11.2 fL (7.4-10.4); NEUTROPHILS 79.1 % (40-80); PLATELET COUNT 169 10x3/uL (130-400); RBC 4.54 10x6/uL (4.00-5.40); RDW 12.5 % (11.5-14.5)
[2017-10-22 06:30] LABS: MCV 90.7 fL (80.0-100.0); WBC 17.1 10x3/uL (4.8-10.8)
[2017-10-22 06:36] LABS: CARBON DIOXIDE 39.7 mmol/L (21.0-32.0); CREATININE - SERUM 0.9 mg/dL (0.6-1.3); POTASSIUM - SERUM 3.7 mmol/L (3.5-5.1)
--- NOTE | 2017-10-22 08:08 | NUR ---
PATIENT IS ALERT TO SELF ONLY. BED ALARM ON. CALL LIGHT WITHIN REACH
[2017-10-22 09:00] VITALS: BP 99/48
--- NOTE | 2017-10-22 12:01 | NUR ---
GLUCOSE LEVEL 230. EIGHT UNITS OF SLDIING SCALE INSULIN GIVEN
--- NOTE | 2017-10-22 17:00 | NUR ---
GLUCOSE LEVEL 383. SIXTEEN UNITS OF SLIDING SCALE GIVEN
--- NOTE | 2017-10-22 19:35 | NUR ---
PT. IN BED WITH HOB UP FOR COMFORT AND IS STILL EATING HER DINNER. ASSESSMENT COMPLETED. NO VOICED NEEDS AT THIS TIME AND HER CALL LIGHT IS WITHIN REACH.
[2017-10-22 20:58] VITALS: BP 119/63
--- NOTE | 2017-10-22 23:08 | NUR ---
PT. IN BED WITH HOB AND FOB ELEVATED FOR COMFORT. EYES CLOSED AND RESP. EVEN. O2 ON AT 2L/MIN VIA N/C AND NO S/S DISTRESS OBSERVED. CALL LIGHT WITHIN REACH.
--- NOTE | 2017-10-23 03:07 | NUR ---
PT. IN BED WITH HOB UP FOR COMFORT, WELL FOB ELEVATED. EYES CLOSED, RESP. EVEN, O2 ON AT 2L/MIN VIA N/C WITHOUT ANY S/S DISTRESS OBSERVED. CALL LIGHT WITHIN REACH.
--- NOTE | 2017-10-23 05:52 | NUR ---
FSBS THIS MORNING 60. GAVE PT. OJ WITH 1 PACKET SUGAR. PT. DID HAVE HER BEDTIME SNACK OF HELENA CRACKERS AND 2 CARTONS OF MILK LAST HS.
--- NOTE | 2017-10-23 06:44 | NUR ---
RECHECK OF FSBS 67. WILL GIVE PT. BERNADETTE SHIPMAN AND REPORT TO DAY SHIFT NURSE SO SHE CAN RECHECK BS.
--- NOTE | 2017-10-23 07:30 | NUR ---
LYING IN BED EYES CLOSED RESTING QUIETLY. AROUSED TO VERBAL STIMULI. NO S/SX OF RESPIRATORY DISTRESS. CALL LIGHT AND PERSONAL ITEMS WITHIN REACH, BED LOW AND ALARM ON. WILL CONTINUE TO MONITOR
[2017-10-23 08:00] VITALS: BP 91/45
--- NOTE | 2017-10-23 08:39 | NUR ---
RESTING QUIETLY.CL IN REACH.
--- NOTE | 2017-10-23 09:33 | NUR ---
ADMINISTERED MORNING MEDS WHOLE WITHOUT DIFFICULTY. ALERT TO SELF, REORIENTED TO PLACE, TIME, AND SITUATION. REFUSES TO EAT BREAKFAST ENCOURAGE TO DRINK GLUCERNA. CALL LIGHT AND PERSONAL ITEMS WITHIN REACH, BED LOW AND ALARM ON. WILL CONTINUE TO MONITOR
--- NOTE | 2017-10-23 13:00 | NUR ---
LYING IN BED EYES CLOSED RESTING. EASILY AROUSED WITH VERBAL STIMULI. NO S/SX OF ACUTE DISTRESS NOTED. CALL LIGHT AND PERSONAL ITEMS WITHIN REACH, BED LOW AND ALARM ON. WILL CONTINUE TO MONITOR
--- NOTE | 2017-10-23 14:51 | NUR ---
LYING IN BED RESTING QUIETLY. REFUSES TO DO ANY THERAPY AND TAKE A SHOWER. PT STATES "LEAVE ME ALONE, I DO NOT WANT TO DO ANYTHING" NO S/SX OF ACUTE DISTRESS NOTED. CALL LIGHT AND WATER WITHIN REACH, BED LOW AND SR X3. WILL CONTINUE TO MONITOR
--- NOTE | 2017-10-23 19:30 | NUR ---
PT. IN BED WITH HOB UP FOR COMFORT WITH EYES CLOSED AND RESP. EVEN. PT. AWAKENS EASILY FOR ASSESSMENT. NO VOICED NEEDS AT THIS TIME AND HER CALL LIGHT IS WITHIN REACH.
[2017-10-23 20:05] VITALS: BP 90/48
--- NOTE | 2017-10-23 23:08 | NUR ---
PT. IN BED WITH HOB UP FOR COMFORT AND LYING ON HER LEFT SIDE. EYES CLOSED AND RESP. EVEN. CALL LIGHT WITHIN REACH.
--- NOTE | 2017-10-24 03:08 | NUR ---
PT. IN BED WITH HOB UP FOR COMFORT WITH EYES CLOSED AND RESP. EVEN. CALL LIGHT WITHIN REACH.
--- NOTE | 2017-10-24 08:10 | NUR ---
PATIENT ALERT TO SLEF ONLY. CALL LIGHT WITHIN REACH. VOICES NO NEEDS AT THIS TIME. PULLED UP IN BED TO EAT BREAKFAST. BREAFAST TRAY SET UP FOR PATIENT.
[2017-10-24 08:28] VITALS: BP 119/48
--- NOTE | 2017-10-24 11:30 | NUR ---
RESTING QUIETLY IN BED WITH CL IN EASY REACH.
--- NOTE | 2017-10-24 19:40 | NUR ---
PT. IN BED WITH HOB UP FOR COMFORT AND IS WATCHING TV AND FINISHING HER DINNER. ASSESSMENT COMPLETED. PT. REQUESTING THAT I CALL HER DAUGHTER FOR HER AND HAVE DAUGHTER TO CALL HER BACK. ATTEMPTED TO REACH DAUGHTER AND NO ANSWER TO HER PHONE AND NO VOICE MAIL SET UP TO BE ABLE TO LEAVE A MESSAGE. INFORMED PT. WILL CONTINUE TO CALL DAUGHTER AT PT'S REQUEST. CALL LIGHT WITHIN REACH.
[2017-10-24 19:50] VITALS: BP 101/54
--- NOTE | 2017-10-24 23:20 | NUR ---
PT. IN BED WITH HOB UP FOR COMFORT LYING ON HER RIGHT SIDE. EYES CLOSED AND RESP. EVEN WITH O2 ON AT 2/MIN VIA N/C WITHOUT ANY S/S DISTRESS OBSERVED. CALL LIGHT REMAINS WITHIN REACH.
--- NOTE | 2017-10-25 03:15 | NUR ---
PT. IN BED WITH HOB UP FOR COMFORT. EYES CLOSED AND RESP. EVEN. CALL LIGHT WITHIN REACH.
[2017-10-25 05:01] LABS: HEMOGLOBIN 11.8 g/dL (12-16); MCHC 33.7 g/dL (31.0-37.0); MCV 91.9 fL (80.0-100.0); MEAN PLATELET VOLUME 11.4 fL (7.4-10.4); PLATELET COUNT 200 10x3/uL (130-400); RBC 3.81 10x6/uL (4.00-5.40); RDW 12.1 % (11.5-14.5); WBC 21.5 10x3/uL (4.8-10.8)
[2017-10-25 05:06] LABS: ANION GAP 2.7 mmol/L (8-16); CALCIUM 8.5 mg/dL (8.5-10.1); CARBON DIOXIDE 39.2 mmol/L (21.0-32.0); CREATININE - SERUM 1.1 mg/dL (0.6-1.3); POTASSIUM - SERUM 4.9 mmol/L (3.5-5.1)
[2017-10-25 05:42] LABS: EOSINOPHILS 1 % (0-7); LYMPHOCYTES 7 % (15-50); MONOCYTES 11 % (2-11); NEUTROPHILS 79 % (40-80); PLATELET ESTIMATE NORMAL
[2017-10-25 07:58] VITALS: BP 100/38
--- NOTE | 2017-10-25 08:00 | NUR ---
AM ROUNDS: PATIENT IS ALERT/ORIENT TO SELF ONLY. BED ALARM ON. CALL LIGHT WITHIN REACH. TELEMETRY INTACT. VOICE NO NEEDS AT THIS TIME
--- NOTE | 2017-10-25 10:10 | NUR ---
PATIENT IN REHAB ROOM. WORKING WITH PHYSICAL THERAPIST. DENIES ANY PAIN/DISC AT THIS TIME.
--- NOTE | 2017-10-25 11:45 | NUR ---
GLUCOSE LEVEL 82. NO SLIDING SCALE INSULIN GIVEN PER ORDER
--- NOTE | 2017-10-25 15:10 | NUR ---
PATIENT INCONT OF URINE. TRANSFERED ONTO TOILET MAX ASST OF ONE. NEEDS 100 PERCENT OF WAYLON CARE DONE.
--- NOTE | 2017-10-25 17:01 | NUR ---
GLUCOSE LEVEL 208. EIGHT UNITS OF SLIDING SCALE INSULIN GIVEN
[2017-10-25 19:30] VITALS: BP 93/42
--- NOTE | 2017-10-25 20:00 | NUR ---
PT IN BED WITH HOB UP FOR COMFORT. WATCHING TV. FSBS ACHS. TELEMETRY. INCONTINENT. NO IV. O2 @ 2L VIA NC. BED IN LOWEST POSITION AND CALL LIGHT WITHIN REACH.
--- NOTE | 2017-10-25 23:15 | NUR ---
RESTING IN BED WITH EYES CLOSED. NO S/S OF DISTRESS OBSERVED. ORIENTED TO PERSON ONLY. INCONTINENT OF B/B WITH PERICARE PROVIDED NEEDED. CONTINUES TO HAVE CRACKLES AND RALES THOUGH OUT LUNG COBOS. CALL LIGHT AND OVERBED TABLE IN REACH.
--- NOTE | 2017-10-26 | NUR ---
PT IN BED WITH HOB UP FOR COMFORT. EYES CLOSED. CHEST RISING AND FALLING. BED IN LOWEST POSITION AND CALL LIGHT WITHIN REACH.
--- NOTE | 2017-10-26 03:50 | NUR ---
INCONTINENT EPISODE. CHANGED PT.
--- NOTE | 2017-10-26 06:32 | NUR ---
bs was 56. orange juice x2 with sugar packets in the oj given. and pt ate a vanilla pudding.
--- NOTE | 2017-10-26 06:46 | NUR ---
RECHECKED BS IT IS 56. PER TATA MENDEZ "IT WILL COME UP." PT IS ASYMPTOMATIC.
--- NOTE | 2017-10-26 07:14 | NUR ---
INTRODUCED SELF TO PT, PT DRINKING OJ, FSBS 78 PER OFF GOING NURSE, WILL CONTINUE TO MONITOR, CALL LIGHT WITHIN REACH.
[2017-10-26 08:00] VITALS: BP 96/42
--- NOTE | 2017-10-26 08:00 | NUR ---
EATING BREAKFAST IN ROOM. DENIES NEEDS. CALL LIGHT IN REACH
--- NOTE | 2017-10-26 09:05 | NUR ---
MORNING MEDICATION GIVEN, PT TOLERATED WELL, RETOOK FSBS DUE TO LOW LEVEL IN AM, WAS 110 WHEN RETOOK, ENCORAGED PT TO EAT AND TO DRINK GLUCERNA, PT STATED WAS NOT HUNGRY BUT DID DRINK PART OF HER GLUCERNA, WILL CONTINUE TO MONITOR, CALL LIGHT WITHIN REACH.
--- NOTE | 2017-10-26 10:39 | NUR ---
Nutrition Follow Up: Chart reviewed. Pt is eating 28% meal avg on a diabetic diet. She is receiving Glucerna BID. +BM 10/25/17. Meds and labs reviewed. Rec continue current diet as tolerated. Will continue to honor food preferences. RD following.
--- NOTE | 2017-10-26 11:05 | NUR ---
PT UP WITH PT, WILL CONTINUE TO MONITOR.
--- NOTE | 2017-10-26 13:03 | NUR ---
PT UP IN CHAIR WATCHING TV, NO NEW NEEDS NOTED AT THIS TIME, WILL CONTINUE TO MONITOR, CALL LIGHT WITHIN REACH.
--- NOTE | 2017-10-26 14:27 | NUR ---
PT WITH SPEACH THERAPY, PT STATES NO NEEDS AT THIS TIME, WILL CONTINUE TO MONITOR, CALL LIGHT WITHIN REACH.
--- NOTE | 2017-10-26 16:08 | NUR ---
PT RESTING IN BED WATCHING TV, PT STATES NO NEEDS AT THIS TIME, WILL CONTINUE TO MONITOR, CALL LIGHT WITHIN REACH.
--- NOTE | 2017-10-26 18:24 | NUR ---
ENCOURAGED PT TO EAT MUCH POSSIBLE, WILL CONTINUE TO MONITOR, CALL LIGHT WITHIN REACH.
[2017-10-26 19:17] VITALS: BP 101/42
--- NOTE | 2017-10-26 19:36 | NUR ---
RECIEVED UP IN BED WITH HOB ELEVATED AND O2@2 LITERS PER N/C. RESP EVEN AND UNLABORED. LUNG SOUNDS CRACKLES IN ALL LUNG COBOS. [id number]. RASH UNDER RIGHT BREAST WITH TX IN PROGRESS. REMAINS ON TELEMETRY. ORIENTED TO PERSON ONLY. ABLE TO FOLLOW SIMPLE COMMANDS. DINNER TRAY SET UP SO PT CAN SEE WHATS ON IT. ACCEPTED TEA AND DRINKING IT. CALL LIGHT IN REACH.
--- NOTE | 2017-10-26 23:49 | NUR ---
RESTING IN BED WITH EYES CLOSED. NO S/S OF DISTRESS OBSERVED. CALL LIGHT IN REACH.
--- NOTE | 2017-10-27 01:47 | NUR ---
RESTING IN BED WITH EYES CLOSED AT THIS TIME. BM X4 THIS SHIFT. ONE HARD BM THAN 3 LOOSE STOOLS. INCONTINENT OF B/B. PERICARE PROVIDED. ABDOMEN SOFT AND NONTENDER. DENIES ANY PAIN. Call LIGHT AND OVERBED TABLE IN REACH.
--- NOTE | 2017-10-27 02:51 | NUR ---
INSULIN HELD AT 2100 FSBS 392. HISTORY OF HYPOGLYCEMIA WITH HS INSULIN. RECHECKED BLOOD SUGAR AT 0250 RESULTS 137. NOTE LEFT FOR DR. HIDALGO.
[2017-10-27 06:49] LABS: BASOPHILS 0.1 % (0-2); EOSINOPHILS 0.5 % (0-7); HEMATOCRIT 36.2 % (36.0-48.0); HEMOGLOBIN 12.1 g/dL (12-16); IMMATURE GRANULOCYTES 1.4 % (0-5); LYMPHOCYTES 9.5 % (15-50); MCHC 33.4 g/dL (31.0-37.0); MCV 92.8 fL (80.0-100.0); MEAN PLATELET VOLUME 11.2 fL (7.4-10.4); MONOCYTES 10.3 % (2-11); NEUTROPHILS 78.2 % (40-80); PLATELET COUNT 234 10x3/uL (130-400); RDW 12.4 % (11.5-14.5); WBC 17.9 10x3/uL (4.8-10.8)
[2017-10-27 07:07] LABS: ANION GAP 6.1 mmol/L (8-16); CALCIUM 8.6 mg/dL (8.5-10.1); CARBON DIOXIDE 39.7 mmol/L (21.0-32.0); CREATININE - SERUM 0.8 mg/dL (0.6-1.3); POTASSIUM - SERUM 4.8 mmol/L (3.5-5.1)
[2017-10-27 08:00] VITALS: BP 110/46
--- NOTE | 2017-10-27 08:00 | NUR ---
PT RESTING IN BED WITH EYES OPEN CALL LIGHT IN REACH WILL MONITER
--- NOTE | 2017-10-27 12:30 | NUR ---
PT UP IN WHEELCHAIR AT BEDSIDE EATING LUNCH DAUGHTER AT BEDSIDE WILL MONITER
--- NOTE | 2017-10-27 15:21 | NUR ---
CARE TEAM MEETING: DAUGHTER ATTENDED MEETING. QUESTIONS AND CONCERNS ADDRESSED. TENATIVE DISCHARGE DATE IS 11/01/17 AND SHE WILL RETURN HOME WITH HER DAUGHTER AND WILL HAVE HOUSE CALLS TO FOLLOW. WILL CONTINUE TO FOLLOW WITH PATIENT.
--- NOTE | 2017-10-27 17:30 | NUR ---
PT BLOOD SUGAR 401 PT GIVEN [address] HIDALGO ORDER WILL MONITER
--- NOTE | 2017-10-27 17:38 | NUR ---
UP IN THE BED.CL IN REACH.
--- NOTE | 2017-10-27 19:30 | NUR ---
BEDSIDE SHIFT REPORT COMPLETE. PATIENT DENIES NEEDS.
[2017-10-27 21:40] VITALS: BP 98/38
--- NOTE | 2017-10-27 21:40 | NUR ---
FSBS 275. GAVE PATIENT 4 UNITS REGULAR SLIDING SCALE INSULIN SC IN RIGHT UPPER ARM. ASSESSMENT AND HS MEDS COMPLETE. CONTINUES ON O2 @ 2L PER N/C.
--- NOTE | 2017-10-27 23:20 | NUR ---
Received report from Edvin MENDEZ.
--- NOTE | 2017-10-28 00:01 | NUR ---
Patient lying in bed awake, denies any pain or discomfort. Oxygen on @2L/min, 3 side rails up for safety, bed alarm on. No voiced complaints.
--- NOTE | 2017-10-28 01:13 | NUR ---
Latex Caster called to say patient's heart rhythm changed to A-Fib. Will monitor.
--- NOTE | 2017-10-28 02:05 | NUR ---
Continues sleeping, respirations easy and regular. vehicle monitor technician on. No signs of distress.
--- NOTE | 2017-10-28 04:00 | NUR ---
Eyes closed, respirations unlabored, no signs of distress, deemed to be sleeping. keno dealer on, rhythm SR.
--- NOTE | 2017-10-28 06:02 | NUR ---
Assisted into wheelchair and up to BR. Moves slowly, has difficulty transfering due to bed in low position still too high and wheelchair also too high due to her short stature. Patient makes an effort to help herself. Telemetry on has changed back to SR.
--- NOTE | 2017-10-28 08:58 | NUR ---
PT AM MEDS ADMINISTERED. PT RESTING IN BED AT THIS TIME. PT STATES SHE IS "STILL PRETTY TIRED." DELMAR.
--- NOTE | 2017-10-28 19:20 | NUR ---
BEDSIDE SHIFT REPORT COMPLETE. PATIENT SLEEPING SOUNDLY. DID NOT AWAKEN WHEN I RAISED LEFT FOOTRAIL, NOR WHEN I REPOSITIONED NASAL CANNULA FROM LEFT CHEEK TO HER NARES.
--- NOTE | 2017-10-28 20:10 | NUR ---
REMAINS IN BED, RESTING QUIETLY AT PRESENT.
[2017-10-28 21:55] VITALS: BP 119/51
--- NOTE | 2017-10-28 21:55 | NUR ---
FSBS 173. GAVE PATIENT 4 UNITS REGULAR S/S INSULIN SC IN RIGHT UPPER ARM. ASSESSMENT AND HS MEDS COMPLETE. REMAINS ORIENTED X1 ONLY. ASSISTED HER TO REPOSITION UP IN BED. HOB ELEVATED 30 DEGREES FOR REFLUX PRECAUTIONS PER SPEECH THERAPIST RECOMMENDATION. PATIENT VERY SLEEPY. DENIES NEEDS.
--- NOTE | 2017-10-28 23:45 | NUR ---
RESTING IN BED, EYES CLOSED. HOB UP 30 DEGREES. APPEARS COMFORTABLE.
--- NOTE | 2017-10-29 02:35 | NUR ---
CLEANSED PATIENT AND CHANGED HER BLUE AIR PADS DUE TO URINE INCONTINENCE. PINK BEDPAD REMAINS DRY. PATIENT DENIES DISCOMFORT.
--- NOTE | 2017-10-29 04:30 | NUR ---
RESTING IN BED, EYES CLOSED. SNORING SOFTLY.
--- NOTE | 2017-10-29 06:25 | NUR ---
FSBS 70. GAVE PATIENT 8 OZS ORANGE JUICE. CLEANSED PATIENT AND CHANGED HER FROM MODERATE URINE INCONTINENCE. ASSISTED HER TO DON SCRUB TOP AND BRIEF.
[2017-10-29 06:34] LABS: BASOPHILS 0.1 % (0-2); EOSINOPHILS 0.8 % (0-7); HEMOGLOBIN 11.5 g/dL (12-16); IMMATURE GRANULOCYTES 1.1 % (0-5); LYMPHOCYTES 10.1 % (15-50); MCH 30.7 pg (26.0-34.0); MCHC 32.9 g/dL (31.0-37.0); MCV 93.6 fL (80.0-100.0); MEAN PLATELET VOLUME 10.7 fL (7.4-10.4); MONOCYTES 8.3 % (2-11); NEUTROPHILS 79.6 % (40-80); PLATELET COUNT 292 10x3/uL (130-400); RBC 3.74 10x6/uL (4.00-5.40); RDW 12.3 % (11.5-14.5)
[2017-10-29 06:48] LABS: ANION GAP 3.7 mmol/L (8-16); CALCIUM 8.8 mg/dL (8.5-10.1); CARBON DIOXIDE 39.1 mmol/L (21.0-32.0); CREATININE - SERUM 0.9 mg/dL (0.6-1.3); POTASSIUM - SERUM 3.8 mmol/L (3.5-5.1)
[2017-10-29 08:08] VITALS: BP 89/43
--- NOTE | 2017-10-29 18:45 | NUR ---
PT RESTING IN BED WITH EYES OPEN CALL LIGHT IN REACH WILL MONITER
[2017-10-29 19:23] VITALS: BP 126/62
--- NOTE | 2017-10-29 19:23 | NUR ---
RECIEVED LAYING IN BED WITH EYES CLOSED. EASILY AROUSES WITH VERBAL STIMULI. PLEASANT AND COOPERATIVE. ORIENTED TO PERSON ONLY.O2@2 LITERS PER N/C IN PLACE WITH HOB ELEVATED. RESP EVEN AND UNLABORED. LUNG SOUNDS CLEAR BILATERALLY. CALL LIGHT AND OVERBED TABLE IN REACH.
--- NOTE | 2017-10-29 23:00 | NUR ---
RESTING IN BED WITH EYES CLOSED. NO S/S OF DISTRESS OBSERVED. CALL LIGHT AND OVERBED TABLE IN REACH.
--- NOTE | 2017-10-30 02:07 | NUR ---
RESTING IN BED WITH EYES CLOSED. HOB ELEVATED AND O2@2 LITERS PER N/C IN PLACE. RESP SHALLOW AND EVEN. INCONTINENT OF B/B. PERICARE PROVIDED NEEDED. CALL LIGHT AND OVERBED TABLE IN REACH.
--- NOTE | 2017-10-30 09:01 | NUR ---
PT RESTING IN BED EYES OPEN CALL LIGHT IN REACH NO PROBLEMS WILL MONITER
[2017-10-30 09:49] VITALS: BP 96/44
--- NOTE | 2017-10-30 17:36 | NUR ---
PT RESTING IN BED WITH EYES OPEN CALL LIGHT IN REACH WILL MONITER
--- NOTE | 2017-10-30 18:40 | NUR ---
RESTING QUIETLY IN BED. CALL LIGHT IN REACH. BED IN LOWEST POSITION.
[2017-10-30 19:43] VITALS: BP 100/60
--- NOTE | 2017-10-30 19:46 | NUR ---
RECIEVED UP IN BED WITH EYES OPEN AND ASKING FOR W/C. WHEN ASKED WHY PT STATED " I WANT TO GO OVER THERE". ALERT AND PLEASANTLY CONFUSED. EASILY REDIRECTED. CALL LIGHT IN REACH.
--- NOTE | 2017-10-31 02:36 | NUR ---
RESTING IN BED WITH EYES CLOSED. NO S/S OF DISTRESS OBSERVED. CHECKED AND REQUIRED PARTIAL LINEN CHANGE. O2@2 LITERS PER N/C. UPDRAFTS GIVEN PER RESP.. CALL LIGHT AND OVERBED TABLE IN REACH.
--- NOTE | 2017-10-31 04:06 | NUR ---
PT YELLING OUT "HELP". WHEN THIS NURSE ENTERED THE ROOM SHE STATED " WHERE DID THAT BOY GO AND DID THE ADULTS LEAVE". REORIENTED TO TIME AND ASSUSRED HER NOONE IS IN THE ROOM. LEFT LIGHTH ON SO SHE COULD SEE. NO OTHER ISSUES AT THIS TIME.
[2017-10-31 08:43] VITALS: BP 108/32
--- NOTE | 2017-10-31 08:50 | NUR ---
PT AM MEDS ADMINISTERED. PT DENIES NEEDS. WCTM.
--- NOTE | 2017-10-31 18:30 | NUR ---
PT HAS RESTED ALL DAY, GETTING OUT OF BED FOR LUNCH. PT HAS HAD 5 INCONT EPISODES. PT BED LINENS CHANGED EACH TIME. PT REFUSED TO EAT ANY DINNER STATING SHE WANTED TO GO TO [place] TO BE WITH HER DAUGHTER. AFTER TELLING PT SHE WOULDNT BE ABLE TO BE WITH HER DAUGHTER IF SHE DIDN'T EAT TO GET SOME ENERGY PT BEGAN EATING.
[2017-10-31 19:32] VITALS: BP 112/41
--- NOTE | 2017-10-31 19:32 | NUR ---
RECIEVED UP IN BED WITH EYES CLOSED. HOB ELEVATED AND O2@2 LITERS PER N/C IN PLACE. RESP EVEN AND UNLABORED. LUNG SOUNDS CLEAR BILATERALLY. INCONT. OF B/B. PERICARE PROVIDED NEEDED. CALL LIGHT AND OVERBED TABLE IN REACH.
--- NOTE | 2017-11-01 00:43 | NUR ---
RESTING IN BED WITH EYES CLOSED. NO S/S OF DISTRESS OBSERVED. O2@2 LITERS PER N/C WITH HOB ELEVTED. CALL LIGHT AND OVERBED TABLE IN REACH.
--- NOTE | 2017-11-01 02:47 | NUR ---
RESTING IN BED WITH EYES CLOSED. NO S/S OF DISTRESS OBSERVED. CALL LIGHT IN REACH.
[2017-11-01 07:19] LABS: BASOPHILS 0.1 % (0-2); HEMATOCRIT 32.6 % (36.0-48.0); HEMOGLOBIN 10.8 g/dL (12-16); IMMATURE GRANULOCYTES 0.8 % (0-5); LYMPHOCYTES 11.2 % (15-50); MCH 30.7 pg (26.0-34.0); MCHC 33.1 g/dL (31.0-37.0); MCV 92.6 fL (80.0-100.0); MEAN PLATELET VOLUME 10.7 fL (7.4-10.4); MONOCYTES 6.4 % (2-11); NEUTROPHILS 80.5 % (40-80); PLATELET COUNT 292 10x3/uL (130-400); RBC 3.52 10x6/uL (4.00-5.40); RDW 12.3 % (11.5-14.5); WBC 14.4 10x3/uL (4.8-10.8)
[2017-11-01 07:41] LABS: CALC OSMOLALITY 268 mosm/kg (275-300); CALCIUM 8.5 mg/dL (8.5-10.1); CARBON DIOXIDE 36.6 mmol/L (21.0-32.0); CHLORIDE - SERUM 93 mmol/L (98-107); CREATININE - SERUM 0.7 mg/dL (0.6-1.3); GLUCOSE 113 mg/dL (74-106); POTASSIUM - SERUM 4.2 mmol/L (3.5-5.1); SODIUM 133 mmol/L (136-145); UREA NITROGEN 19 mg/dL (7-18); eGFR NON AFRICAN AMERICAN 84 mL/min (90-120)
--- NOTE | 2017-11-01 07:54 | NUR ---
RESTING QUIETLY IN BED. CALL LIGHT IN REACH. BED IN LOWEST POSITION.
[2017-11-01 08:00] VITALS: BP 97/42
--- NOTE | 2017-11-01 09:30 | NUR ---
PATIENT HELPED UP TO WHEELCHAIR WITH ASST OF TWO. TAKEN BY FILTER TANK TENDER UP TO HAVE CHEST XRAY
--- NOTE | 2017-11-01 10:48 | NUR ---
PATIENT ALERT/ WITH CONFUSION. SITTING UP IN BED TO EAT BREAKFAST. PATIENT NEEDED CARTONS OPENED AND FOOD CUT. POOR APPETITE. BED ALARM ON. CALL LIGHT WITHIN REACH. OXYGEN ON AT 2L PER N/C.
--- NOTE | 2017-11-01 11:55 | NUR ---
SPOKE WITH PATIENT DAUGHTER AND SHE WOULD LIKE A REFERRAL SENT TO [facility] FOR POSSIBLE ADMISSION. REFERRAL HAS BEEN FAXED
--- NOTE | 2017-11-01 12:00 | NUR ---
GLUCOSE LEVEL 190. FOUR UNITS OF SLIDING SCALE INSULIN GIVEN PER ORDER
[2017-11-01 19:45] VITALS: BP 108/40
--- NOTE | 2017-11-01 19:45 | NUR ---
PT. IN BED WITH HOB UP FOR COMFORT WITH EYES CLOSED AND RESP. EVEN. PT. AWAKENS EASILY FOR ASSESSMENT. NO VOICED NEEDS AT THIS TIME. O2 @ 2L/MIN VIA N/C WITHOUT ANY S/S DISTRESS. CALL LIGHT WITHIN REACH.
--- NOTE | 2017-11-01 23:10 | NUR ---
PT. IN BED WITH HOB UP FOR COMFORT. EYES CLOSED AND RESP. EVEN. O2 ON @ 2L/MIN VIA N/C WITHOUT ANY S/S RESP. DISTRESS. CALL LIGHT WITHIN REACH.
--- NOTE | 2017-11-02 03:08 | NUR ---
PT. IN BED WITH HOB/FOB UP FOR COMFORT. EYES CLOSED AND RESP. EVEN. O2 ON AT 2L/MIN VIA N/C WITHOUT ANY S/S DISTRESS OBSERVED. CALL LIGHT WITHIN REACH.
--- NOTE | 2017-11-02 08:06 | NUR ---
PT RESTING IN BED EATING BREAKFAST CALL LIGHT IN REACH WILL MONITER
--- NOTE | 2017-11-02 08:25 | NUR ---
IN BED.FINISHED WITH BREAKFAST.CL IN REACH.
[2017-11-02 08:41] VITALS: BP 101/49
--- NOTE | 2017-11-02 10:06 | NUR ---
PATIENT DISCHARGING TO [facility].NO DME OR HOME HEALTH NEEDED AT THIS TIME. AN APPOINTMENT WITH DR. AVILES WILL BE MADE AT TIME OF DISCHARGE FROM FACILITY. PATIENT CHOICE FORM FOR SNF AND [facility] FORM SIGNED , EXPLAINED AND FILED IN CHART. FAMILY NOTIFIED OF ACCEPTANCE TO FACILITY.
--- NOTE | 2017-11-02 11:01 | NUR ---
Nutrition Follow Up: Pt was asleep at the time of RD visit. Interview deferred at this time. Pt is eating 43% meal avg on a diabetic [facility] soft diet with ground meats. She is receiving Glucerna BID. +BM 11/02/17. Meds and labs reviewed. Rec continue current diet, supplement regimen. RD following.
--- NOTE | 2017-11-02 13:43 | NUR ---
PT UP IN WHEELCHAIR IN ROOM TOLERATING WELL WILL MONITER
--- NOTE | 2017-11-02 15:40 | NUR ---
PT DISCHARGED TO [facility] VIA WHEELCHAIR REPORT CALLED NO PROBLEMS WITH TRANSFER
== END 2017-11-02 18:02 | DRG 189 ==
LOC: D.REHAB 17:08
PROVIDERS: ADMIT Emergency Medicine
DX: J96.01 Acute respiratory failure with hypoxia (principal); J18.9 Pneumonia, unspecified organism; J81.1 Chronic pulmonary edema; J98.11 Atelectasis; J90 Pleural effusion, not elsewhere classified; R41.82 Altered mental status, unspecified; I48.91 Unspecified atrial fibrillation; E87.6 Hypokalemia; F32.9 Major depressive disorder, single episode, unspecified; E11.65 Type 2 diabetes mellitus with hyperglycemia

== ENCOUNTER 2017-11-18 15:37 | Inpatient (IN) | payer MEDICARE, BC ==
[~2017-11-18] VITALS: Ht 152.4 cm; Wt 77.1 kg
--- NOTE | ~2017-11-18 | EC ---
PATIENT:BLAKE FIELD I DATE OF SERVICE: 11/19/17 SEX: F MEDICAL RECORD: [id number] DATE OF : [birth year] LOCATION:D.M2 D.212 AGE OF PATIENT: 87 ADMISSION DATE: 11/19/17 REFERRING PHYSICIAN: INTERPRETING PHYSICIAN: OLEKSANDR JUNG MD ECHOCARDIOGRAM REPORT ECHO CHARGES 4 ECHO COMPLETE CLINICAL DIAGNOSIS: A-FIB ECHOCARDIOGRAPHIC MEASUREMENTS (adult normal given) AC root (d.<3.7cm) 3.0 cm LV Septum d (<1.2 cm> 1.5 cm Valve Excursion 1.7 cm LV Septum (systole) 1.9 cm Left Atria (s.<4.0cm> 3.9 cm LVPW d(<1.2cm) 1.4 cm RV (d.<2.3cm) 2.1 cm LVPW (sytole) 1.8 cm LV diastole(<5.6CM) 4.6 cm MV E-F(>70mm/sec) cm LV systole 2.5 cm LVOT Diameter 1.5 cm MV exc.(>10mm) cm Est.ejection fraction (50-75%) % Pericardial Effusion N DOPPLER: LVIT cm/sec A 104 cm/sec E 125 cm/sec LA cm/sec RVSP 59.1 mmHg LVOT 128 cm/sec AOP1/2T m/s Asc. Ao 183 cm/sec RVOT 71.0 cm/sec RA cm/sec PA 87.0 cm/sec AV Gradient Peak 13.5 mmHg AV Mean 6.2 mmHg AV Area 1.1 cm MV Gradient Peak 7.7 mmHg MV Mean 2.9 mmHg MV Area cm COMMENTS: Straight Ruling Machine Operator: Lolis VIEIRAOE Consumer Services Consultant: Ray Jung TAPE# PACS DATE OF SERVICE: 11/21/2017 PROCEDURE: Transthoracic echocardiogram. FINDINGS: 1. Left ventricle has mild concentric left ventricular hypertrophy with ejection fraction of 60%. Inflow characteristics are normal. 2. The left atrium is normal size, normal function. 3. The aortic valve is structurally normal. 4. The mitral valve has crrgg-[id number] mitral regurgitation. ECHOCARDIOGRAM REPORT [id number] BLAKE FIELD I 5. Tricuspid valve has [id number]-fg-nufgamtl tricuspid regurgitation with moderate elevation in PA pressures of 50-55 mmHg. 6. Pulmonic valve: There is trace pulmonic insufficiency. 7. The right atrium is mildly enlarged. 8. The right ventricle is normal size, normal function. CONCLUSIONS: The patient has an echocardiogram, which is otherwise normal for stated age with some evidence of nien-pp-ikyqjgfx pulmonary hypertension. TRANSINT:[id number] Voice Confirmation ID: [id number] DOCUMENT ID: [id number] 12/01/2017 Edited to correct date of service, dm. OLEKSANDR JUNG MD at 1038 CC: [id number] DICTATION DATE: 11/25/17 0836 MANAGER INTERNAL: 11/25/17 1000 DIS IN 11/28/17 [facility] [address] [place] [address]
[2017-11-18 17:14] LABS: ALBUMIN 2.6 g/dL (3.4-5.0); ALKALINE PHOSPHATASE 74 U/L (46-116); ALT (SGPT) 26 U/L (10-68); BILIRUBIN - TOTAL 0.45 mg/dL (0.2-1.3); CALC OSMOLALITY 259 mosm/kg (275-300); CARBON DIOXIDE 34.3 mmol/L (21.0-32.0); CHLORIDE - SERUM 91 mmol/L (98-107); GLUCOSE 111 mg/dL (74-106); POTASSIUM - SERUM 4.3 mmol/L (3.5-5.1); SODIUM 128 mmol/L (136-145); UREA NITROGEN 19 mg/dL (7-18); eGFR NON AFRICAN AMERICAN 55 mL/min (90-120)
[2017-11-18 17:18] LABS: CREATINE KINASE 37 UL (21-215)
[2017-11-18 17:23] LABS: TROPONIN-I < 0.017 ng/mL (0.000-0.060)
[2017-11-18 17:28] LABS: BASOPHILS 0.1 % (0-2); EOSINOPHILS 0.6 % (0-7); HEMATOCRIT 33.2 % (36.0-48.0); HEMOGLOBIN 11.5 g/dL (12-16); IMMATURE GRANULOCYTES 2.7 % (0-5); LYMPHOCYTES 12.1 % (15-50); MCHC 34.6 g/dL (31.0-37.0); MCV 92.5 fL (80.0-100.0); MEAN PLATELET VOLUME 9.4 fL (7.4-10.4); MONOCYTES 9.3 % (2-11); NEUTROPHILS 75.2 % (40-80); RBC 3.59 10x6/uL (4.00-5.40); RDW 13.5 % (11.5-14.5); WBC 9.5 10x3/uL (4.8-10.8)
[2017-11-18 17:29] LABS: PLATELET COUNT 205 10x3/uL (130-400)
[2017-11-18 17:37] LABS: INR 1.05 (0.85-1.17); PROTIME 13.3 SECONDS (11.6-15.0)
[2017-11-18 17:48] LABS: APPEARANCE CLOUDY (CLEAR); BACTERIA MANY /hpf (NONE SEEN); BILIRUBIN NEGATIVE (NEGATIVE); COLOR YELLOW (YELLOW); GLUCOSE NEGATIVE (NEGATIVE); KETONE NEGATIVE (NEGATIVE); NITRITE NEGATIVE (NEGATIVE); PROTEIN NEGATIVE (NEGATIVE); RED CELLS - URINE 0-5 /hpf (0-5); SPECIFIC GRAVITY 1.015 (1.005-1.020); UROBILINOGEN NORMAL (NORMAL)
[2017-11-19 02:36] VITALS: BP 102/41; BMI 29.3
[2017-11-19] MEDS ORDERED: CALMOSEPTINE OI71 GM (03:26)
[2017-11-19] MEDS ORDERED: NYSTATIN1 PWD TOPICAL (03:27)
[2017-11-19 04:00] VITALS: BP 123/50
[2017-11-19 08:36] VITALS: BP 111/58
[2017-11-19 10:49] LABS: BASOPHILS 0.1 % (0-2); IMMATURE GRANULOCYTES 2.7 % (0-5); LYMPHOCYTES 10.7 % (15-50); MCH 31.8 pg (26.0-34.0); MCHC 34.3 g/dL (31.0-37.0); MCV 92.9 fL (80.0-100.0); MEAN PLATELET VOLUME 9.7 fL (7.4-10.4); MONOCYTES 8.1 % (2-11); NEUTROPHILS 77.4 % (40-80); PLATELET COUNT 210 10x3/uL (130-400); RDW 13.6 % (11.5-14.5); WBC 11.3 10x3/uL (4.8-10.8)
[2017-11-19 11:10] LABS: HEMATOCRIT 41.7 % (36.0-48.0); HEMOGLOBIN 14.3 g/dL (12-16); RBC 4.49 10x6/uL (4.00-5.40)
[2017-11-19 11:14] LABS: ALKALINE PHOSPHATASE 83 U/L (46-116); ALT (SGPT) 24 U/L (10-68); BILIRUBIN - TOTAL 0.39 mg/dL (0.2-1.3); CARBON DIOXIDE 34.2 mmol/L (21.0-32.0); CHLORIDE - SERUM 93 mmol/L (98-107); GLUCOSE 77 mg/dL (74-106); PROTEIN - SERUM 5.5 g/dL (6.4-8.2); SODIUM 132 mmol/L (136-145)
[2017-11-19 11:16] LABS: CALC OSMOLALITY 264 mosm/kg (275-300); CREATININE - SERUM 0.7 mg/dL (0.6-1.3); POTASSIUM - SERUM 3.5 mmol/L (3.5-5.1); UREA NITROGEN 14 mg/dL (7-18); eGFR NON AFRICAN AMERICAN 84 mL/min (90-120)
[2017-11-19 12:02] VITALS: BP 126/50
[2017-11-19 13:00] VITALS: BMI 29.2
[2017-11-19 16:09] VITALS: BP 147/66
[2017-11-19 21:23] VITALS: BP 172/75
[2017-11-20 01:06] VITALS: BP 170/64
[2017-11-20 04:46] VITALS: BP 160/50
[2017-11-20 08:45] VITALS: BP 125/45
[2017-11-20 09:18] LABS: BASOPHILS 0.3 % (0-2); EOSINOPHILS 1.4 % (0-7); HEMATOCRIT 35.4 % (36.0-48.0); HEMOGLOBIN 12.2 g/dL (12-16); IMMATURE GRANULOCYTES 2.3 % (0-5); LYMPHOCYTES 10.8 % (15-50); MCHC 34.5 g/dL (31.0-37.0); MCV 92.9 fL (80.0-100.0); MEAN PLATELET VOLUME 9.8 fL (7.4-10.4); NEUTROPHILS 77.2 % (40-80); PLATELET COUNT 224 10x3/uL (130-400); RBC 3.81 10x6/uL (4.00-5.40); RDW 13.7 % (11.5-14.5); WBC 9.6 10x3/uL (4.8-10.8)
[2017-11-20 09:47] LABS: ALBUMIN 2.5 g/dL (3.4-5.0); ALKALINE PHOSPHATASE 70 U/L (46-116); ALT (SGPT) 21 U/L (10-68); BILIRUBIN - TOTAL 0.39 mg/dL (0.2-1.3); CALC OSMOLALITY 263 mosm/kg (275-300); CALCIUM 8.5 mg/dL (8.5-10.1); CARBON DIOXIDE 30.3 mmol/L (21.0-32.0); CHLORIDE - SERUM 98 mmol/L (98-107); CREATININE - SERUM 0.6 mg/dL (0.6-1.3); GLUCOSE 104 mg/dL (74-106); POTASSIUM - SERUM 3.8 mmol/L (3.5-5.1); PROTEIN - SERUM 4.8 g/dL (6.4-8.2); SODIUM 132 mmol/L (136-145); UREA NITROGEN 9 mg/dL (7-18); eGFR NON AFRICAN AMERICAN > 90 mL/min (90-120)
[2017-11-20 12:45] VITALS: BP 136/46
[2017-11-20 17:29] VITALS: BP 129/57
[2017-11-20 23:45] VITALS: BP 136/59
[2017-11-21] VITALS (33 sets, daily range): BP systolic 84–134; BP diastolic 35–73; Ht 152.4 cm; Wt 77.1 kg
[2017-11-21 05:54] LABS: BASOPHILS 0.2 % (0-2); EOSINOPHILS 0.8 % (0-7); HEMATOCRIT 33.4 % (36.0-48.0); HEMOGLOBIN 11.3 g/dL (12-16); LYMPHOCYTES 9.4 % (15-50); MCH 31.9 pg (26.0-34.0); MCHC 33.8 g/dL (31.0-37.0); MCV 94.4 fL (80.0-100.0); MEAN PLATELET VOLUME 9.3 fL (7.4-10.4); MONOCYTES 8.9 % (2-11); NEUTROPHILS 79.7 % (40-80); PLATELET COUNT 227 10x3/uL (130-400); RBC 3.54 10x6/uL (4.00-5.40); RDW 14.3 % (11.5-14.5); WBC 11.5 10x3/uL (4.8-10.8)
[2017-11-21 06:32] LABS: ALBUMIN 2.3 g/dL (3.4-5.0); ANION GAP 7.5 mmol/L (8-16); BILIRUBIN - TOTAL 0.29 mg/dL (0.2-1.3); CARBON DIOXIDE 30.2 mmol/L (21.0-32.0); POTASSIUM - SERUM 3.7 mmol/L (3.5-5.1); PROTEIN - SERUM 4.5 g/dL (6.4-8.2)
[2017-11-21 06:35] LABS: CREATININE - SERUM 0.8 mg/dL (0.6-1.3)
[2017-11-22] VITALS (23 sets, daily range): BP systolic 94–151; BP diastolic 42–82
[2017-11-22 06:03] LABS: BASOPHILS 0.2 % (0-2); EOSINOPHILS 0.9 % (0-7); HEMATOCRIT 33.5 % (36.0-48.0); IMMATURE GRANULOCYTES 1.6 % (0-5); LYMPHOCYTES 8.4 % (15-50); MCH 31.8 pg (26.0-34.0); MCHC 32.8 g/dL (31.0-37.0); MEAN PLATELET VOLUME 9.4 fL (7.4-10.4); MONOCYTES 6.1 % (2-11); NEUTROPHILS 82.8 % (40-80); PLATELET COUNT 191 10x3/uL (130-400); RBC 3.46 10x6/uL (4.00-5.40); RDW 14.1 % (11.5-14.5); WBC 9.6 10x3/uL (4.8-10.8)
[2017-11-22 06:08] LABS: MCV 96.8 fL (80.0-100.0)
[2017-11-22 06:21] LABS: ALBUMIN 2.4 g/dL (3.4-5.0); ALKALINE PHOSPHATASE 66 U/L (46-116); ALT (SGPT) 19 U/L (10-68); BILIRUBIN - TOTAL 0.25 mg/dL (0.2-1.3); CALC OSMOLALITY 270 mosm/kg (275-300); CALCIUM 8.3 mg/dL (8.5-10.1); CARBON DIOXIDE 29.8 mmol/L (21.0-32.0); CHLORIDE - SERUM 102 mmol/L (98-107); CREATININE - SERUM 0.7 mg/dL (0.6-1.3); GLUCOSE 107 mg/dL (74-106); POTASSIUM - SERUM 3.8 mmol/L (3.5-5.1); PROTEIN - SERUM 4.7 g/dL (6.4-8.2); SODIUM 136 mmol/L (136-145); UREA NITROGEN 9 mg/dL (7-18); VANCOMYCIN - RANDOM 5.8 ug/mL (10.0-20.0); eGFR NON AFRICAN AMERICAN 84 mL/min (90-120)
[2017-11-23] VITALS (15 sets, daily range): BP systolic 84–131; BP diastolic 39–65
[2017-11-23 05:34] LABS: BASOPHILS 0.2 % (0-2); EOSINOPHILS 1.1 % (0-7); HEMATOCRIT 31.5 % (36.0-48.0); HEMOGLOBIN 10.4 g/dL (12-16); IMMATURE GRANULOCYTES 1.1 % (0-5); LYMPHOCYTES 10.8 % (15-50); MCV 96.9 fL (80.0-100.0); MEAN PLATELET VOLUME 9.7 fL (7.4-10.4); MONOCYTES 9.5 % (2-11); NEUTROPHILS 77.3 % (40-80); PLATELET COUNT 203 10x3/uL (130-400); RBC 3.25 10x6/uL (4.00-5.40); RDW 14.1 % (11.5-14.5)
[2017-11-23 05:47] LABS: ALBUMIN 2.2 g/dL (3.4-5.0); ALKALINE PHOSPHATASE 62 U/L (46-116); ALT (SGPT) 16 U/L (10-68); BILIRUBIN - TOTAL 0.22 mg/dL (0.2-1.3); CALC OSMOLALITY 273 mosm/kg (275-300); CALCIUM 8.3 mg/dL (8.5-10.1); CHLORIDE - SERUM 102 mmol/L (98-107); CREATININE - SERUM 0.6 mg/dL (0.6-1.3); GLUCOSE 144 mg/dL (74-106); POTASSIUM - SERUM 3.7 mmol/L (3.5-5.1); PROTEIN - SERUM 4.5 g/dL (6.4-8.2); SODIUM 136 mmol/L (136-145); UREA NITROGEN 9 mg/dL (7-18); eGFR NON AFRICAN AMERICAN > 90 mL/min (90-120)
[2017-11-24 07:56] VITALS: BP 111/61
[2017-11-24 11:33] VITALS: BP 119/52
[2017-11-24 15:36] VITALS: BP 158/45
[2017-11-24 19:00] VITALS: BP 131/62
[2017-11-25 04:00] VITALS: BP 117/70
[2017-11-25 05:51] LABS: HEMATOCRIT 34.3 % (36.0-48.0); HEMOGLOBIN 11.2 g/dL (12-16); MCH 31.8 pg (26.0-34.0); MCHC 32.7 g/dL (31.0-37.0); MCV 97.4 fL (80.0-100.0); MEAN PLATELET VOLUME 9.8 fL (7.4-10.4); RBC 3.52 10x6/uL (4.00-5.40); RDW 14.3 % (11.5-14.5); WBC 9.2 10x3/uL (4.8-10.8)
[2017-11-25 06:02] LABS: PLATELET COUNT 252 10x3/uL (130-400)
[2017-11-25 06:13] LABS: CALC OSMOLALITY 271 mosm/kg (275-300); CALCIUM 9.4 mg/dL (8.5-10.1); CARBON DIOXIDE 31.3 mmol/L (21.0-32.0); CHLORIDE - SERUM 99 mmol/L (98-107); CREATININE - SERUM 0.5 mg/dL (0.6-1.3); GLUCOSE 115 mg/dL (74-106); POTASSIUM - SERUM 3.9 mmol/L (3.5-5.1); SODIUM 136 mmol/L (136-145); UREA NITROGEN 10 mg/dL (7-18); eGFR NON AFRICAN AMERICAN > 90 mL/min (90-120)
[2017-11-25 07:33] LABS: EOSINOPHILS 1 % (0-7); LYMPHOCYTES 12 % (15-50); MONOCYTES 5 % (2-11); NEUTROPHILS 78 % (40-80); PLATELET ESTIMATE NORMAL
[2017-11-25 07:57] VITALS: BP 124/78
[2017-11-25 11:18] VITALS: BP 126/72
[2017-11-25 15:38] VITALS: BP 138/63
[2017-11-25 21:43] VITALS: BP 136/54
[2017-11-26 06:45] VITALS: BP 135/63
[2017-11-26 08:35] VITALS: BP 140/80
[2017-11-26 11:40] VITALS: BP 138/77
[2017-11-26 15:34] VITALS: BP 134/82
[2017-11-26 23:00] VITALS: BP 129/63
[2017-11-26 23:28] VITALS: BP 145/64
[2017-11-27 06:45] LABS: BASOPHILS 0.1 % (0-2); EOSINOPHILS 0.3 % (0-7); HEMATOCRIT 38.1 % (36.0-48.0); HEMOGLOBIN 12.4 g/dL (12-16); LYMPHOCYTES 8.2 % (15-50); MCH 31.6 pg (26.0-34.0); MCHC 32.5 g/dL (31.0-37.0); MCV 97.2 fL (80.0-100.0); MEAN PLATELET VOLUME 9.6 fL (7.4-10.4); MONOCYTES 8.4 % (2-11); RBC 3.92 10x6/uL (4.00-5.40); RDW 14.4 % (11.5-14.5)
[2017-11-27 07:02] LABS: PLATELET COUNT 305 10x3/uL (130-400); WBC 13.5 10x3/uL (4.8-10.8)
[2017-11-27 07:05] LABS: ANION GAP 12.6 mmol/L (8-16); CALCIUM 9.8 mg/dL (8.5-10.1); CARBON DIOXIDE 29.8 mmol/L (21.0-32.0); CREATININE - SERUM 0.8 mg/dL (0.6-1.3); POTASSIUM - SERUM 4.4 mmol/L (3.5-5.1)
[2017-11-27 08:04] VITALS: BP 148/69
[2017-11-27 11:34] VITALS: BP 121/69
[2017-11-27 15:37] VITALS: BP 134/66
[2017-11-27 21:36] VITALS: BP 140/56
[2017-11-28 01:29] VITALS: BP 124/51
[2017-11-28 06:40] LABS: BASOPHILS 0.2 % (0-2); EOSINOPHILS 0 % (0-7); HEMATOCRIT 37.6 % (36.0-48.0); HEMOGLOBIN 12.2 g/dL (12-16); LYMPHOCYTES 8.6 % (15-50); MCH 31.6 pg (26.0-34.0); MCHC 32.4 g/dL (31.0-37.0); MCV 97.4 fL (80.0-100.0); MEAN PLATELET VOLUME 9.8 fL (7.4-10.4); MONOCYTES 8.6 % (2-11); NEUTROPHILS 81.6 % (40-80); PLATELET COUNT 308 10x3/uL (130-400); RBC 3.86 10x6/uL (4.00-5.40); RDW 14.4 % (11.5-14.5)
[2017-11-28 06:52] LABS: ANION GAP 8.3 mmol/L (8-16); CALCIUM 9.5 mg/dL (8.5-10.1); CARBON DIOXIDE 34.3 mmol/L (21.0-32.0); POTASSIUM - SERUM 4.6 mmol/L (3.5-5.1)
[2017-11-28 07:58] VITALS: BP 160/67
[2017-11-28 11:24] VITALS: BP 116/63
[2017-11-28 15:35] VITALS: BP 126/73
== END 2017-11-28 22:05 | DRG 872 ==
LOC: D.ER 15:37 → D.MS 21:02 → OBSVTIME 21:02 → D.MS 22:04 → D.CVICU 11-19 13:47 → D.M2 11-19 13:47 → D.CVICU 11-20 23:35 → D.M2 11-23 17:12
PROVIDERS: Emergency Medicine; Family Medicine; Internal Medicine Nephrology
DX: A41.9 Sepsis, unspecified organism (principal); N39.0 Urinary tract infection, site not specified; E44.0 Moderate protein-calorie malnutrition; E87.1 Hypo-osmolality and hyponatremia; I95.9 Hypotension, unspecified; E11.9 Type 2 diabetes mellitus without complications; I10 Essential (primary) hypertension; I48.91 Unspecified atrial fibrillation; Z68.29 Body mass index [BMI] 29.0-29.9, adult